=== PATIENT | male | born 1985 | race Caucasian/White ===

== ENCOUNTER 2016-10-20 22:58 | Emergency (ER) | payer SELFPAY ==
[~2016-10-20] VITALS: Ht 167.6 cm; Wt 89.0 kg
[~2016-10-20 22:58] MED LIST: DICY10CA60 PO; IBUP-1542 PO; LORA1TAB PO; ONDA4TAB35 PO; TRAM50TA2 PO
[2016-10-20 23:01] VITALS: Ht 167.6 cm; Wt 89.0 kg
[2016-10-21] MEDS ORDERED: IBUPROFEN 600 MG TAB PO ONE (00:30)
[2016-10-21] MEDS ORDERED: HYDROCODONE/APAP (5/325) TAB PO ONE (00:30)
--- NOTE | 2016-10-21 00:49 | RADRPT ---
PROCEDURE: XR Lumbar Spine. CLINICAL INDICATION: Low back pain. TECHNIQUE: AP, cone-down lateral, and lateral views of the lumbar spine were obtained. COMPARISON: None. FINDINGS: Mineralization is within normal limits. Vertebral bodies are normal in height. No fracture is iden tified. Lumbar lordosis is preserved. No vertebral subluxation is seen. The intervertebral discs are normal in height. Paraspinal contours are unremarkable. Calcification of the left retroperitone um is again noted consistent with a calcified lymph node seen on the prior CT of 07/31/2015 RPTAT:HJJR IMPRESSION: Unremarkable three view series of the lumbar spine. Physician Carla Date Time Electronically viewed and signed by Physician Carla on 10/21/2016 00:48 JR/
--- NOTE | 2016-10-21 00:50 | RADRPT ---
PROCEDURE: XR Hip. CLINICAL INDICATION: Bilateral hip pain TECHNIQUE: AP and frog lateral views of both the left and right hip were performed, a total of 4 i mages sent to the PACS for review. COMPARISON: None. FINDINGS: There is normal mineralization and alignment. No fracture or osseous lesion is identified. The femor al head is normal in contour and the joint space preserved. There is no evidence of avascular necros is. The soft tissues are unremarkable. . RPTAT:HJJR IMPRESSION: Unremarkable bilateral hip series. Physician Carla Date Time Electronically viewed and signed by Physician Carla on 10/21/2016 00:49 JR/
[2016-10-21] MEDS ORDERED: IBUP-1542 PO (01:31)
[2016-10-21] MEDS ORDERED: HYDR-906 PO (01:31)
--- NOTE | 2016-10-21 01:37 | ERD ---
ER Documentation Chief Complaint Date/Time DATE: 10/21/16 TIME: 01:33 Chief Complaint low back pain radaiting to both legs, constipation HPI This is a 30-year-old male presents here with lower back pain that radiates into both of his hips and both of his legs that started a few hours ago. Patient denies any numbness or tingling. He denies any urinary bowel incontinence he denies any saddle like anesthesia. Patient denies any fevers or chills. He denies any trauma. ROS 12 point review of systems was done, all negative except per HPI. Medications Home Meds Active Scripts Hydrocodone/Acetaminophen (Amity 5-325 Tablet) 1 Each Tablet, 1 TAB PO Q6H Y for PAIN, #10 TAB Prov:NEDRA VIRAMONTES 10/21/16 Ibuprofen* (Motrin*) 600 Mg Tab, 600 MG PO Q6, #30 TAB Prov:NEDRA VIRAMONTES 10/21/16 Tramadol HCl (Tramadol HCl) 50 Mg Tablet, 50 MG PO Q6 Y for SEVERE PAIN LEVEL 7- 10, #20 TAB Prov:NASH WRIGHT NP 04/26/16 Ibuprofen* (Motrin*) 600 Mg Tab, 600 MG PO Q6H Y for PAIN AND OR ELEVATED TEMP, #30 TAB Prov:NASH WRIGHT NP 04/26/16 Ondansetron Hcl* (Zofran* ODT) 4 mg -ODT Tab.disper, 4 MG PO Q8 Y for NAUSEA AND /OR VOMITING, #30 TAB Prov:NASH WRIGHT NP 07/31/15 Dicyclomine Hcl* (Bentyl*) 10 Mg Capsule, 10 MG PO QID, #30 CAP Prov:NASH WRIGHT NP 16 Lorazepam* (Lorazepam*) 1 Mg Tablet, 1 MG PO QHS Y for QHS, #15 TAB Prov:NEDRA VIRAMONTES 02/24/15 Allergies Allergies: Coded Allergies: No Known Allergy (Unverified , 11/28/14) PMhx/Soc Medical and Surgical Hx: pt denies Surgical Hx History of Surgery: No Anesthesia Reaction: No Hx Neurological Disorder: No Hx Respiratory Disorders: No Hx Cardiac Disorders: Yes (hypertension) Hx Psychiatric Problems: No Hx Miscellaneous Medical Probl: Yes (SEASONAL ALLERGIES) Hx Alcohol Use: Yes (occassional) Hx Substance Use: No Hx Tobacco Use: No Smoking Status: Never smoker Physical Exam Vitals Vital Signs Date Time Temp Pulse Resp B/P Pulse Ox O2 Delivery O2 Flow Rate FiO2 10/20/16 23:01 98.3 97 20 134/74 100 Physical Exam GENERAL: The patient is well developed and appropriate for usual state of health , in no apparent distress. NECK: C-spine is soft and supple. There is no cervical lymphadenopathy. CHEST: Clear to auscultation bilaterally. There are no rales, wheezes or rhonchi. HEART: Regular rate and rhythm. No murmurs, clicks, rubs or gallops. ABDOMEN: Soft, nontender and nondistended. Good bowel sounds. No rebound or guarding. No gross peritonitis. No gross organomegaly or masses. No Rutledge sign or McBurney point tenderness. No pulsatile abdominal mass. BACK: No midline or flank tenderness. Tender to palpation from L3-L5. Tense paraspinal muscles. Negative leg raise test. No step- offs. Patient is tender to palpation to bilateral hips he has full range of motion of both hips. Sensations are intact to L4,L5. S1 EXTREMITIES: Equal pulses bilaterally. There is no peripheral clubbing, cyanosis or edema. No focal swelling or erythema. Full range of motion. Grossly neurovascularly intact. NEURO: Alert and oriented. Cranial nerves II through XII are intact. Motor strength in all 4 extremities with 5/5 strength. Sensation grossly intact. Normal speech and gait. SKIN: There is no apparent rash or petechia. The skin is warm and dry. Results 24 hrs Current Medications Medications (Trade) Dose Ordered Sig/Prem Route PRN Reason Start Time Stop Time Status Last Admin Dose Admin Acetaminophen/ Hydrocodone Bitart (Amity (5/325)) 1 tab ONCE ONCE PO 10/21/16 00:30 10/21/16 00:31 DC 10/21/16 00:49 Ibuprofen (Motrin) 600 mg ONCE ONCE PO 10/21/16 00:30 10/21/16 00:31 DC 10/21/16 00:49 Procedures/MDM Differential Diagnosis includes but is not limited to back strain, vertebral fracture, epidural abscess, cauda equina, herniated disc, AAA rupture, kidney stones, UTI, pyelonephritis. At this time etiology of back pain is unknown. Suspicion for epidural abscess or cauda equina is low. Patient is afebrile and well-appearing. He is ambulatory in the ER and he is neurovascularly intact to bilateral lower extremities. Patient will be sent home with Amity with ibuprofen. Needs to follow-up with his primary care doctor within 1-2 days or return to ER sooner if symptoms worsen. My medical decision making was shared with the patient he understands and agrees with plan Departure Diagnosis: Primary Impression: Back pain Additional Impression: Hip pain Condition: Stable Patient Instructions: Back Pain (Acute Or Chronic) Additional Instructions: Call your primary care doctor TOMORROW for an appointment during the next 1-2 days.See the doctor sooner or return here if your condition worsens before your appointment time. NEDRA VIRAMONTES Oct 21, 2016 01:37
[2016-10-21 01:46] VITALS: BP 132/71; PULSE 67; RESP 18; TEMP 98.4
== END 2016-10-21 01:47 | disposition home or self-care (01) ==
LOC: FTE 22:58
DX: M54.5 Low back pain (principal); M25.551 Pain in right hip; M25.552 Pain in left hip; I10 Essential (primary) hypertension
CPT/HCPCS: 72100; 73520

== ENCOUNTER 2017-05-15 16:27 | Emergency (ER) | payer MEDICAID ==
[~2017-05-15] VITALS: Ht 165.1 cm; Wt 89.0 kg
[~2017-05-15 16:27] MED LIST changes: +HYDR-906 PO
[2017-05-15 16:31] VITALS: Ht 165.1 cm; Wt 89.0 kg
--- NOTE | 2017-05-15 17:19 | RADRPT ---
PROCEDURE: XR Chest. CLINICAL INDICATION: Possible stroke. TECHNIQUE: Single frontal view of the chest was obtained. COMPARISON: None FINDINGS: The cardiomediastinal silhouette is normal in size. No focal consolidation is seen. No pleural effusion is seen. No definite pneumothorax. No acute osseous abnormality. IMPRESSION: No radiographic evidence of an acute cardiopulmonary process. RPTAT: HPWH Kavita Vinson Physician Date Time Electronically viewed and signed by Kavita Vinson Physician on 05/15/2017 17:17 /
[2017-05-15 17:20] LABS: BASOPHILS % 0.6 % (0.0-2.0); EOSINOPHILS # 0.1 10^3/ul (0.0-0.5); EOSINOPHILS % 1.4 % (0.0-7.0); HEMATOCRIT 47.6 % (42.0-52.0); HEMOGLOBIN 17.4 g/dl (14.0-18.0); LYMPHOCYTES % 28.3 % (15.0-51.0); MEAN CORPUSCULAR HEMOGLOBIN 34.9 pg (29.0-33.0); MEAN CORPUSCULAR HGB CONC 36.6 g/dl (32.0-37.0); MEAN CORPUSCULAR VOLUME 95.6 fl (82.0-101.0); MEAN PLATELET VOLUME 10.9 fl (7.4-10.4); MONOCYTE # 0.5 10^3/ul (0.3-0.9); MONOCYTES % 7.6 % (0.0-11.0); NEUTROPHIL # 4.4 10^3/ul (1.6-7.5); NEUTROPHILS % 61.8 % (39.0-77.0); PLATELET COUNT 135 10^3/UL (140-415); RED BLOOD COUNT 4.98 10^6/ul (4.70-6.10); RED CELL DISTRIBUTION WIDTH 12.1 % (11.5-14.5); WHITE BLOOD COUNT 7.1 10^3/ul (4.8-10.8)
[2017-05-15 17:33] LABS: INR 1.05; PROTIME 13.7 Sec (12.2-14.2); PT RATIO 1.1
[2017-05-15 17:34] LABS: PARTIAL THROMBOPLASTIN TIME 27.9 Sec (25.0-35.0)
[2017-05-15 17:38] LABS: ANION GAP 12 (8-16); BLOOD UREA NITROGEN 9 mg/dl (7-20); CALCIUM 9.6 mg/dl (8.4-10.2); CARBON DIOXIDE 29 mmol/L (21-31); CHLORIDE 103 mmol/L (97-110); CREATININE 0.75 mg/dl (0.61-1.24); GLUCOSE 159 mg/dl (70-220); POTASSIUM 3.6 mmol/L (3.5-5.1); SODIUM 140 mmol/L (135-144)
[2017-05-15 17:51] LABS: TROPONIN-I < 0.012 ng/ml (0.00-0.12)
--- NOTE | 2017-05-15 18:06 | RADRPT ---
PROCEDURE: CT Brain without contrast. CLINICAL INDICATION: Pain, headache TECHNIQUE: Routine CT scan of the brain was performed on a high resolution multi detector scanner without intravenous contrast. One or more of the following dose reduction techniques were used: Auto mated exposure control; Adjustment of the mA and/or kV according to patient size; Use of iterative r econstruction technique. CTDI = 43 mGy. DLP = 720 mGy-cm. DICOM images are available. COMPARISON: MR 11/30/2014 FINDINGS: Hemorrhage: No evidence of intracranial hemorrhage. Acute ischemic changes: No evidence of acute ischemic changes. Mass effect: None. Parenchymal volume: Within normal limits for age. Ventricular system: Concordant with parenchymal volume. Cavum of the septum pellucidum is present. Chronic changes: Parenchymal attenuation is within normal limits. Idiopathic appearing calcificatio ns of the bilateral basal ganglia are present. Extracranial soft tissues: Unremarkable. Calvarium: No fractures. Paranasal sinuses: Visualized paranasal sinuses are clear. Mastoid air cells: Visualized mastoid air cells are clear. IMPRESSION: No acute intracranial abnormalities. Normal appearance of the brain parenchyma. Critical results were discussed with Sam Romo by telephone 05/15/2017 6:04:[address] Catrachito Mitchell RPTAT: AADD .Catrachito Mitchell MD, Date Time Electronically viewed and signed by .Catrachito Mitchell MD, on 05/15/2017 18:05 .B/
--- NOTE | 2017-05-15 18:12 | ERD ---
ER Documentation Chief Complaint Chief Complaint Complains of chest pain with tingling of the fingers HPI 31-year-old male presents to the emergency department complaining of numbness and tingling in the left side of his face and fingers accompanied by palpitations and chest pain. Patient was in his usual state of health until yesterday which time He had a nonspecific sensation of tingling and what he describes as "numbness" in the left side of his body. However, upon further detailed, he has been able to actually feel everything and has no sensory deficits. This was associated with no significant headache, difficulty speaking or any focal weakness. He had no other stroke related symptoms. Today, he had a nonspecific discomfort that he describes a palpitation in his chest. This was associated with no fevers, chills, chest pain or shortness of breath. All of these symptoms concerned him for cardiac and/or stroke related symptoms and so he came to the emergency department today. Currently, he has no chest pain, no weakness, no difficulty speaking, no headache. ROS All systems reviewed and are negative except as per history of present illness. Medications Home Meds Discontinued Scripts Hydrocodone/Acetaminophen ([place] 5-325 Tablet) 1 Each Tablet, 1 TAB PO Q6H Y for PAIN, #10 TAB Prov:NEDRA VIRAMONTES 10/21/16 Ibuprofen* (Motrin*) 600 Mg Tab, 600 MG PO Q6, #30 TAB Prov:NEDRA VIRAMONTES 10/21/16 Tramadol HCl (Tramadol HCl) 50 Mg Tablet, 50 MG PO Q6 Y for SEVERE PAIN LEVEL 7- 10, #20 TAB Prov:NASH WRIGHT STUDIO CONTROL OPERATOR 04/26/16 Ibuprofen* (Motrin*) 600 Mg Tab, 600 MG PO Q6H Y for PAIN AND OR ELEVATED TEMP, #30 TAB Prov:NASH WRIGHT STUDIO CONTROL OPERATOR 04/26/16 Ondansetron Hcl* (Zofran* ODT) 4 mg -ODT Tab.disper, 4 MG PO Q8 Y for NAUSEA AND /OR VOMITING, #30 TAB Prov:NASH WRIGHT NP 07/31/15 Dicyclomine Hcl* (Bentyl*) 10 Mg Capsule, 10 MG PO QID, #30 CAP Prov:NASH WRIGHT NP 07/31/15 Lorazepam* (Lorazepam*) 1 Mg Tablet, 1 MG PO QHS Y for QHS, #15 TAB Prov:NEDRA VIRAMONTES 02/24/15 Allergies Allergies: Coded Allergies: No Known Allergy (Unverified , 11/28/14) PMhx/Soc Medical and Surgical Hx: pt denies Surgical Hx History of Surgery: No Anesthesia Reaction: No Hx Neurological Disorder: No Hx Respiratory Disorders: No Hx Cardiac Disorders: Yes (hypertension) Hx Psychiatric Problems: No Hx Miscellaneous Medical Probl: Yes (SEASONAL ALLERGIES) Hx Alcohol Use: Yes (DAILY) Hx Substance Use: No Hx Tobacco Use: Yes Smoking Status: Current every day smoker FmHx No history of early stroke or heart disease Physical Exam Vitals Vital Signs Date Time Temp Pulse Resp B/P Pulse Ox O2 Delivery O2 Flow Rate FiO2 05/15/17 16:31 100.0 109 20 179/92 94 Physical Exam GENERAL: The patient is well developed and appropriate for usual state of health in no apparent distress HEENT: Pupils equal, round, and reactive to light. EOMI. There is no scleral icterus. NECK: C-spine is soft and supple, there is no meningismus. There is no cervical lymphadenopathy. LUNGS: Clear to auscultation bilaterally. There are no rales, wheezes or rhonchi. HEART: Regular rate and rhythm, no murmurs, clicks, rubs or gallops. ABDOMEN: Soft, non-tender, non-distended. There are bowel sounds in all four quadrants. No rebound or guarding. EXTREMITIES: There is no peripheral cyanosis or edema. No focal swelling or erythema. NEURO: The patient moves all four extremities with 5/5 strength. Cranial nerves II - XII are intact. Normal gait. Alert and oriented SKIN: There is no apparent rash or petechiae. Patient has vitiligo HEME/LYMPHATIC: There is no evidence of excessive bruising or lymphedema. PSYCHIATRIC: The patient does not appear anxious or depressed. Result Diagram: 05/15/17 17005/15/17 1705 Results 24 hrs Laboratory Tests Test 05/15/17 17:05 White Blood Count 7.110^3/ul Red Blood Count 4.9810^6/ul Hemoglobin 17.4g/dl Hematocrit 47.6% Mean Corpuscular Volume 95.6fl Mean Corpuscular Hemoglobin 34.9pg Mean Corpuscular Hemoglobin Concent 36.6g/dl Red Cell Distribution Width 12.1% Platelet Count 74307^3/UL Mean Platelet Volume 10.9fl Neutrophils % 61.8% Lymphocytes % 28.3% Monocytes % 7.6% Eosinophils % 1.4% Basophils % 0.6% Nucleated Red Blood Cells % 0.0/100WBC Neutrophils # 4.410^3/ul Lymphocytes # 2.010^3/ul Monocytes # 0.510^3/ul Eosinophils # 0.110^3/ul Basophils # 0.010^3/ul Nucleated Red Blood Cells # 0.010^3/ul Prothrombin Time 13.7Sec Prothrombin Time Ratio 1.1 INR International Normalized Ratio 1.05 Activated Partial Thromboplast Time 27.9Sec Sodium Level 140mmol/L Potassium Level 3.6mmol/L Chloride Level 103mmol/L Carbon Dioxide Level 29mmol/L Anion Gap 12 Blood Urea Nitrogen 9mg/dl Creatinine 0.75mg/dl Glucose Level 159mg/dl Calcium Level 9.6mg/dl Troponin I < 0.012ng/ml Procedures/MDM Patient was taken to a room, seen and evaluated. Comfort measures were initiated. Diagnostic tests were ordered and reviewed. 3 LEAD RHYTHM STRIP: [Normal sinus rhythm without ectopy] EK lead EKG reviewed by myself: [Normal Sinus Rhythm] [Normal Holden and intervals] [No ST elevation, depression, or T wave inversion] Impression: [Normal EKG] RADIOLOGY: [reviewed with the radiologist] REEVALUATION: Patient remained neurologically normal and with no evidence of ongoing cardiac or neurologic issues MEDICAL DECISION MAKIN-year-old male with no significant cardiac risk factors presents to the emergency department with nonspecific symptoms concerning him for cardiac and neurologic concerns. Patient's workup focused on these concerns, but demonstrate no evidence of significant ischemic disease either cardiac or cerebral. Overall, patient's been reassured and seems appropriate for outpatient care. Departure Diagnosis: Primary Impression: Chest pain Condition: Stable Patient Instructions: Generalized Weakness, Chest Pain, Uncertain Cause Additional Instructions: All your tests today are normal. Please return for any problems or concerns ONEIDA BROTHERS May 15, 2017 18:12
[2017-05-15 18:31] VITALS: BP 135/72; PULSE 74; RESP 17
== END 2017-05-15 18:32 | disposition home or self-care (01) ==
LOC: E/R 16:27
DX: R07.9 Chest pain, unspecified (principal); R20.2 Paresthesia of skin; R00.2 Palpitations
CPT/HCPCS: 36415; 70450; 71010; 80048; 83036; 84484; 85025; 85610; 85730; Z7502; 93005

== ENCOUNTER 2017-08-27 21:33 | Emergency (ER) | END 2017-08-27 23:25 | disposition home or self-care (01) ==

== ENCOUNTER 2017-10-23 10:30 | Emergency (ER) | END 2017-10-23 14:24 | disposition home or self-care (01) ==

== ENCOUNTER 2017-12-03 21:43 | Emergency (ER) | END 2017-12-03 23:53 | disposition home or self-care (01) ==

== ENCOUNTER 2018-01-23 19:37 | Emergency (ER) | END 2018-01-23 22:11 | disposition home or self-care (01) ==

== ENCOUNTER 2018-03-22 18:18 | Observation (INO) | END 2018-03-23 10:40 | disposition home or self-care (01) ==

== ENCOUNTER 2018-05-28 08:31 | Emergency (ER) | END 2018-05-28 10:50 | disposition home or self-care (01) ==

== ENCOUNTER 2018-06-01 20:40 | Emergency (ER) | END 2018-06-02 02:11 | disposition home or self-care (01) ==

== ENCOUNTER 2018-06-20 17:37 | Emergency (ER) | END 2018-06-20 19:31 | disposition home or self-care (01) ==

== ENCOUNTER 2018-07-13 17:30 | Emergency (ER) | payer OTHER ==
[~2018-07-13] VITALS: Ht 160 cm; Wt 90.0 kg
[~2018-07-13 17:30] MED LIST changes: +ACET500T98 PO; -DICY10CA60 PO; -HYDR-906 PO; -LORA1TAB PO; -ONDA4TAB35 PO; -TRAM50TA2 PO
[2018-07-13 17:40] VITALS: Ht 160 cm; Wt 90.0 kg
[2018-07-13] MEDS ORDERED: SOD CHLORIDE 0.9% 500 ML IV STA (22:21)
[2018-07-13] MEDS ORDERED: FLUO20CA22 PO (22:27)
[2018-07-13] MEDS ORDERED: METO-335 PO (22:27)
[2018-07-13] MEDS ORDERED: ASPI-817 PO (22:27)
[2018-07-13] MEDS ORDERED: IOHEXOL 100 ML ONE (23:23)
[2018-07-13] MEDS ORDERED: SOD CHLORIDE 0.9% 100 ML ONE (23:23)
[2018-07-14] MEDS ORDERED: LORA-441 PO (01:02)
--- NOTE | 2018-07-14 01:11 | ERD ---
ER Documentation Chief Complaint Chief Complaint headache x 3 hrs ,no neuro deficits ,had slurred speech earlier HPI This is a very pleasant 32 male headache for the past 3 hours with no neuro deficits. He said he had a transient moment of slurred speech but he says been having this on and off since he had a tonsillectomy last year. Denies any focal neurologic complaints otherwise. No weakness. No incontinence. No numbness or tingling. No visual acuity changes. No other current issues. Headache is mild to moderate intensity no exacerbating alleviating factors. ROS All systems reviewed and are negative except as per history of present illness. Medications Home Meds Active Scripts Lorazepam* (Ativan*) 0.5 Mg Tablet, 0.5 MG PO Q8H PRN for ANXIETY, #10 TAB Prov:PHIL DIAZ 07/14/18 Reported Medications Metoprolol Succinate* (Toprol XL*) 25 Mg Tab.sr.24h, 25 MG PO DAILY, #30 TAB 07/13/18 Fluoxetine Hcl* (Fluoxetine Hcl*) 20 Mg Capsule, 20 MG PO DAILY, CAP 07/13/18 Aspirin* (Aspirin* EC) 81 Mg Tablet.dr, 81 MG PO DAILY, TAB 07/13/18 Discontinued Scripts Acetaminophen (Tylenol) 500 Mg Tab, 500 MG PO Q6 PRN for PAIN, #30 TAB Prov:ADIN MENESES DO 05/28/18 Ibuprofen* (Motrin*) 600 Mg Tab, 600 MG PO Q6H PRN for PAIN AND OR ELEVATED TEMP, #30 TAB Prov:ADIN MENESES DO 05/28/18 Allergies Allergies: Coded Allergies: No Known Allergy (Unverified , 07/13/18) PMhx/Soc History of Surgery: Yes (Tonsillectomy) Anesthesia Reaction: No Hx Neurological Disorder: No Hx Respiratory Disorders: No Hx Cardiac Disorders: No Hx Psychiatric Problems: No Hx Miscellaneous Medical Probl: Yes (GENERALIZED VITILIGO, Sleep apnea) Hx Alcohol Use: Yes (OCCASIONAL) Hx Substance Use: No Hx Tobacco Use: Yes (Stopped 3 years ago) Smoking Status: Former smoker Physical Exam Vitals Vital Signs Date Temp Pulse Resp B/P (MAP) Pulse Ox O2 O2 Flow FiO2 Time Delivery Rate 07/13/18 57 16 114/62 100 Room Air 23:30 (79) 07/13/18 98.1 68 18 166/85 99 17:40 (112) Physical Exam Const: No acute distress Head: Atraumatic Eyes: Normal Conjunctiva ENT: Normal External Ears, Nose and Mouth. Neck: Full range of motion. No meningismus. Resp: Clear to auscultation bilaterally Cardio: Regular rate and rhythm, no murmurs Abd: Soft, non tender, non distended. Normal bowel sounds Skin: No petechiae or rashes Back: No midline or flank tenderness Ext: No cyanosis, or edema Neur: Awake and alert Psych: Normal Mood and Affect Result Diagram: 07/13/18223807/13/182238 Results 24 hrs Laboratory Tests Test 07/13/18 22:39 07/13/18 23:20 White Blood Count 8.1 10^3/ul Red Blood Count 5.03 10^6/ul Hemoglobin 17.0 g/dl Hematocrit 46.4 % Mean Corpuscular Volume 92.2 fl Mean Corpuscular Hemoglobin 33.8 pg Mean Corpuscular Hemoglobin Concent 36.6 g/dl Red Cell Distribution Width 12.4 % Platelet Count 151 10^3/UL Mean Platelet Volume 10.7 fl Immature Granulocytes % 0.100 % Neutrophils % 57.0 % Lymphocytes % 34.4 % Monocytes % 6.3 % Eosinophils % 2.0 % Basophils % 0.2 % Nucleated Red Blood Cells % 0.0 /100WBC Immature Granulocytes # 0.010 10^3/ul Neutrophils # 4.6 10^3/ul Lymphocytes # 2.8 10^3/ul Monocytes # 0.5 10^3/ul Eosinophils # 0.2 10^3/ul Basophils # 0.0 10^3/ul Nucleated Red Blood Cells # 0.0 10^3/ul Urine Color YELLOW Urine Clarity CLEAR Urine pH 6.0 Urine Specific [place] 1.011 Urine Ketones NEGATIVE mg/dL Urine Nitrite NEGATIVE mg/dL Urine Bilirubin NEGATIVE mg/dL Urine Urobilinogen NEGATIVE mg/dL Urine Leukocyte Esterase NEGATIVE Moon/ul Urine Hemoglobin NEGATIVE mg/dL Urine Glucose NEGATIVE mg/dL Urine Total Protein NEGATIVE mg/dl Sodium Level 139 mmol/L Potassium Level 3.9 mmol/L Chloride Level 103 mmol/L Carbon Dioxide Level 23 mmol/L Anion Gap 13 Blood Urea Nitrogen 12 mg/dl Creatinine 0.67 mg/dl Est Glomerular Filtrat Rate mL/min > 60 mL/min Glucose Level 90 mg/dl Hemoglobin A1c 5.2 % Calcium Level 9.6 mg/dl Total Bilirubin 0.8 mg/dl Direct Bilirubin 0.00 mg/dl Indirect Bilirubin 0.8 mg/dl Aspartate Amino Transf (AST/SGOT) 54 IU/L Alanine Aminotransferase (ALT/SGPT) 61 IU/L Alkaline Phosphatase 72 IU/L Creatine Kinase 181 IU/L Creatine Kinase Index 0.3 Creatinine Kinase MB (Mass) 0.58 ng/ml Troponin I < 0.012 ng/ml Total Protein 8.9 g/dl Albumin 4.8 g/dl Globulin 4.10 g/dl Albumin/Globulin Ratio 1.17 Triglycerides Level 102 mg/dl Cholesterol Level 237 mg/dl LDL Cholesterol, Calculated 162 mg/dl HDL Cholesterol 55 mg/dl Cholesterol/HDL Ratio 4.3 RATIO Urine Opiates Screen Negative Urine Barbiturates Negative Urine Amphetamines Screen Negative Urine Benzodiazepines Screen Negative Urine Cocaine Screen Negative Urine Cannabinoids Negative Ethyl Alcohol Level < 10.0 mg/dl Prothrombin Time 13.4 Sec Prothrombin Time Ratio 1.0 INR International Normalized Ratio 1.01 Activated Partial Thromboplast Time 28.6 Sec Current Medications Medications Dose Sig/Prem Start Time Status Last (Trade) Ordered Route PRN Stop Time Admin Dose Reason Admin Sodium 500 ml @ Q1H STAT 07/13/18 DC 07/13/18 Chloride 500 mls/hr IV 22:21 22:33 07/13/18 23:20 IV Flush 10 ml STK-MED 07/13/18 DC (NS 10 ml) ONCE .ROUTE 23:23 07/13/18 23:24 Sodium 100 ml @ ud STK-MED 07/13/18 DC Chloride ONCE .ROUTE 23:23 07/13/18 23:24 Iohexol 100 ml @ ud STK-MED 07/13/18 DC ONCE .ROUTE 23:23 07/13/18 23:24 Procedures/MDM CT of the brain and CT angios the head and neck were both read as negative by radiologist. Please see full dictation for report. EKG: Rate/Rhythm: [Normal Sinus Rhythm] QRS, ST, T-waves: [No changes consistent w/ acute ischemia] Impression: [No evidence of ischemia or arrhythmia] Chest X-ray 1V Interpreted by me: Soft Tissue: No acute abno rmalities Bones: No acute abnormalities Mediastinum/Cardiac Silhouette/Lungs: [No acute abnormalities] Medical decision making: Patient's neurologic symptoms have stabilized while they have been evaluated in the department and are appropriate for outpatient work up. No e/o meningitis, intracranial bleed, seizure, stroke. Departure Diagnosis: Primary Impression: Multiple complaints Condition: Stable Patient Instructions: Headache, Unspecified PHIL DIAZ Jul 14, 2018 01:11
[2018-07-14 01:14] VITALS: BP 107/95; PULSE 92; RESP 16
== END 2018-07-14 01:15 | disposition home or self-care (01) ==
LOC: E/R 17:30
DX: R51 Headache (principal); R47.81 Slurred speech; R07.9 Chest pain, unspecified; Z87.891 Personal history of nicotine dependence; Z79.82 Long term (current) use of aspirin
CPT/HCPCS: 36415; 70450; 70496; 70498; 71045; 80053; 80061; 80307; 81003; 82550; 82553; 83036; 84484; 85025; 85610; 85730; 93005; J7040; Q9967; Z7502; Z7610

== ENCOUNTER 2018-10-12 20:20 | Inpatient (IN) | payer MEDICAID, OTHER ==
[~2018-10-12] VITALS: Ht 157.5 cm; Wt 90.4 kg
[~2018-10-12 20:20] MED LIST changes: -ACET500T98 PO; +ASPI-817 PO; +FLUO20CA22 PO; -IBUP-1542 PO; +LORA-441 PO; +METO-335 PO
[2018-10-12] MEDS ORDERED: MULTIVITAMINS (21:03)
--- NOTE | 2018-10-12 21:31 | STROKE ---
Date/Time of Note Date/Time of Note DATE: 10/12/18 TIME: :23 Patient Information General Patient location: emergency Arrival Date Onset Time: 19:20 Age 32 Gender male Weight 90.4 kg Vital Signs Vital Signs Vital Signs Date Temp Pulse Resp B/P (MAP) Pulse Ox O2 O2 Flow FiO2 Time Delivery Rate 10/12/18 99.2 112 20 145/82 94 20:27 (103) Patient History Current Medications Allergies: Coded Allergies: No Known Allergy (Unverified , 10/12/18) History & Physical Patient History Notes Pt Hx Reviewed History of Present Illness 32 yo M who presents to the ER for evaluation of transient left arm flaccid paralysis and left facial numbness lasting about 3 min with onset around 7:20pm today on 10/12. Upon arrival to the ER he then developed hand numbness lasting about 5 minutes before resolution. Review of Systems Constitutional: denies fever Respiratory: denies no symptoms reported Cardiovascular: denies no symptoms reported Gastrointestinal: denies no symptoms reported Psychiatric/Neurological: denies no symptoms reported NIH Stroke Scale NIH Stroke Scale [id number] Total Score: [id number] Date/Time Recorded DATE: 10/12/18 TIME: :23 Submitted By Ernst Sow t-PA Imaging Review Imaging Reviewed: Yes Date/Time Imaging Reviewed DATE: 10/12/18 TIME: 21:23 Inclusion/Exclusion Criteria not recommended due to non-disabling and minor symptoms t-PA Administration Recommendation: No Weight 90.4 kg Recommedation submitted by Ernst Sow Recommendations Impression Diagnosis This is a patient who developed transient left facial numbness and left arm paralysis today lasting about 3 mins. Although this resolved, he subsequently developed transient numbness of his right hand. NIHSS was 0 and CTH was negative for acute processes. TPA was considered but not recommended due to the minor symptoms. His symptoms are concerning for a TIA and thus will recommend admission for further workup Recommendation 1) MRI/MRA Brain head/neck. 2) Neurology consult to guide ischemic/embolic workup: TTE w bubble, LDL, A1c, telemetry admission. 3) permissive HTN for 24h (treat for SBP>220). 4) ASA 81 now and continue daily for now ERNST SOW MD Oct 12, 2018 21:31
--- NOTE | 2018-10-12 21:48 | ERD ---
ER Documentation Chief Complaint Chief Complaint left sd facial numbness x25 mins. c/o right side weakness. HPI 32-year-old male with no significant past medical history presented with left- sided facial numbness and slurred speech that started at 1800 tonight. Patient states that he was holding his baby when he suddenly felt weakness in his left upper extremity and the baby was caught by his mom. He states that now his weakness is in the right upper extremity and right lower extremity with tingling in the right side. He denies any associated nausea or vomiting. He does have a mild left-sided headache. He states that he has never had symptoms like this before. Denies any alcohol use today. He states that his mom gave him a "calming" tea after his symptoms started with worsening of his symptoms. ROS All systems reviewed and are negative except as per history of present illness. Medications Home Meds Reported Medications [Multivitamins] No Conflict Check 10/12/18 Discontinued Reported Medications Metoprolol Succinate* (Toprol XL*) 25 Mg Tab.sr.24h, 25 MG PO DAILY, #30 TAB 07/13/18 Fluoxetine Hcl* (Fluoxetine Hcl*) 20 Mg Capsule, 20 MG PO DAILY, CAP 07/13/18 Aspirin* (Aspirin* EC) 81 Mg Tablet.dr, 81 MG PO DAILY, TAB 07/13/18 Discontinued Scripts Lorazepam* (Ativan*) 0.5 Mg Tablet, 0.5 MG PO Q8H PRN for ANXIETY, #10 TAB Prov:MONICAPHIL GAINES 07/14/18 Allergies Allergies: Coded Allergies: No Known Allergy (Unverified , 10/12/18) PMhx/Soc History of Surgery: Yes (Tonsillectomy) Anesthesia Reaction: No Hx Neurological Disorder: No Hx Respiratory Disorders: No Hx Cardiac Disorders: No Hx Psychiatric Problems: No Hx Miscellaneous Medical Probl: Yes (GENERALIZED VITILIGO, Sleep apnea) Hx Alcohol Use: Yes (OCCASIONAL) Hx Substance Use: No Hx Tobacco Use: Yes (Stopped 3 years ago) Smoking Status: Former smoker FmHx Mother had CVA Physical Exam Vitals Vital Signs Date Temp Pulse Resp B/P (MAP) Pulse Ox O2 O2 Flow FiO2 Time Delivery Rate 10/12/18 107 20 106/70 96 Room Air 22:16 (82) 10/12/18 99.2 112 20 145/82 94 20:27 (103) Physical Exam Const: No acute distress, nontoxic. Smells of alcohol Head: Atraumatic Eyes: Normal Conjunctiva ENT: Normal External Ears, Nose and Mouth. Neck: Full range of motion. No meningismus. Resp: Clear to auscultation bilaterally Cardio: Regular rate and rhythm, no murmurs. 2+ distal pulses in all 4 extremities Abd: Soft, non tender, non distended. Normal bowel sounds Skin: Vitiligo. No petechiae or rashes Back: No midline or flank tenderness Ext: No cyanosis, or edema Neur: Awake and alert oriented x3, somewhat slurred speech, no facial asymmetry, cranial nerves intact, strength 5 out of 5 in all 4 extremities. Diminished sensation in the right upper extremity to painful stimuli. No pronator drift. Steady gait. Psych: Normal Mood and Affect Result Diagram: 10/13/18 0530 10/13/18 0530 Results 24 hrs Laboratory Tests Test 10/12/18 20:50 10/12/18 21:00 White Blood Count 10.0 10^3/ul Red Blood Count 4.96 10^6/ul Hemoglobin 16.8 g/dl Hematocrit 45.9 % Mean Corpuscular Volume 92.5 fl Mean Corpuscular Hemoglobin 33.9 pg Mean Corpuscular Hemoglobin Concent 36.6 g/dl Red Cell Distribution Width 12.0 % Platelet Count 152 10^3/UL Mean Platelet Volume 10.7 fl Immature Granulocytes % 0.300 % Neutrophils % 46.8 % Lymphocytes % 44.8 % Monocytes % 6.3 % Eosinophils % 1.4 % Basophils % 0.4 % Nucleated Red Blood Cells % 0.0 /100WBC Immature Granulocytes # 0.030 10^3/ul Neutrophils # 4.7 10^3/ul Lymphocytes # 4.5 10^3/ul Monocytes # 0.6 10^3/ul Eosinophils # 0.1 10^3/ul Basophils # 0.0 10^3/ul Nucleated Red Blood Cells # 0.0 10^3/ul Prothrombin Time 13.9 Sec Prothrombin Time Ratio 1.1 INR International Normalized Ratio 1.06 Activated Partial Thromboplast Time 30.1 Sec Sodium Level 146 mmol/L Potassium Level 3.7 mmol/L Chloride Level 109 mmol/L Carbon Dioxide Level 25 mmol/L Anion Gap 12 Blood Urea Nitrogen 10 mg/dl Creatinine 0.95 mg/dl Est Glomerular Filtrat Rate mL/min > 60 mL/min Glucose Level 145 mg/dl Hemoglobin A1c 5.4 % Calcium Level 9.0 mg/dl Creatine Kinase 262 IU/L Creatine Kinase Index 0.5 Creatinine Kinase MB (Mass) 1.20 ng/ml Troponin I < 0.012 ng/ml Triglycerides Level 465 mg/dl Cholesterol Level 206 mg/dl LDL Cholesterol, Calculated 66 mg/dl HDL Cholesterol 47 mg/dl Cholesterol/HDL Ratio 4.3 RATIO Ethyl Alcohol Level 226.0 mg/dl Urine Color YELLOW Urine Clarity CLEAR Urine pH 5.0 Urine Specific Steward 1.018 Urine Ketones TRACE mg/dL Urine Nitrite NEGATIVE mg/dL Urine Bilirubin NEGATIVE mg/dL Urine Urobilinogen 1+ mg/dL Urine Leukocyte Esterase NEGATIVE Moon/ul Urine Hemoglobin NEGATIVE mg/dL Urine Glucose NEGATIVE mg/dL Urine Total Protein NEGATIVE mg/dl Urine Opiates Screen Negative Urine Barbiturates Negative Urine Amphetamines Screen Negative Urine Benzodiazepines Screen Negative Urine Cocaine Screen Negative Urine Cannabinoids Negative Procedures/MDM EMERGENT LABS AND DIAGNOSTIC STUDIES: Lab Results above were reviewed and interpreted by me. CBC: Thrombocytopenia, unclear etiology. No anemia or evidence of infection CMP: No evidence of clinically significant electrolyte abnormality, acidosis, renal failure, hypoglycemia, liver disease, or biliary obstruction Alcohol level significantly elevated consistent with alcohol intoxication Troponin within normal limits, not indicative of cardiac ischemia UA: no evidence of infection 12-lead EKG was interpreted by Hector Wu MD: Sinus tachycardia 110 beats per minute rightward axis Normal intervals No acute ST or T wave changes suggestive of acute ischemia or STEMI. Radiology Results as interpreted by Radiology below were reviewed by SSandy Wu MD: CT head shows no acute abnormalities Chest x-ray shows no acute abnormalities Initial Nursing notes reviewed. Previous Medical Records requested via the Electronic Health Record. EMERGENCY DEPARTMENT COURSE / MEDICAL DECISION MAKING: Patient arrived to the ER with complaints of strokelike symptoms. There is no significant weakness in his extremities on exam but he did have a slightly slurred speech and sensation deficit on the right upper extremity. For this reason code stroke was activated and the patient was taken directly to CT. I spoke with the tele-neurologist on-call, Dr. Sow at 2050. He evaluated the patient and has currently given him an NIH SS of 0 at time of evaluation. TPA is not indicated due to low NIHSS. However Dr. Sow is concerned about a possible TIA given the patient's symptoms prior to her arrival. Dr. Sow recommended admission for MRI and TIA workup. Later his labs resulted and showed evidence of alcohol intoxication. At this point, I spoke with Dr. Sow again to discuss alcohol intoxication and to make sure that he still thinks that the patient should be admitted for TIA workup. After speaking with him, he states that he would still admit this patient given his symptoms were very concerning for stroke and that alcohol intoxication would likely account for them. Patient is agreeable with admission plan. Spoke with Dr. Alonso, who accepted the patient for admission to telemetry. Critical Care Time: 40 minutes Treatments/Evaluations: Close monitoring and treatment of unstable vital signs, cardiorespiratory, and neurologic status, while maintaining tight balance of fluid, respiratory, and cardiac interventions. This time includes discussing the case with the patient and the patients family. This time does not include all procedures stated elsewhere in this record. This time also includes reviewing old records, labs and radiological studies. This time includes examining and re-examining the patient. Additionally, this time also includes arranging care with admitting and consulting physicians. Accepting Care Team: Current data and ongoing care discussed. Time: Time of admission Primary Provider: Dr. Alonso Consulting: Dr. Sow with tele-neurology Outstanding Data: none Departure Diagnosis: Primary Impression: Stroke-like symptoms Additional Impressions: Alcohol intoxication Complication of substance-induced condition: uncomplicated Qualified Codes: F10.920 - Alcohol use, unspecified with intoxication, uncomplicated Thrombocytopenia Condition: SHILPA Cole MD Oct 12, 2018 21:48
--- NOTE | 2018-10-12 22:26 | HP ---
Date/Time of Note Date/Time of Note DATE: 10/12/18 TIME: 22:26 Assessment/Plan VTE Prophylaxis SCD applied (from Nsg): Yes Pharmacological prophylaxis: NA/contraindicated Pharm contraindication: low risk/ambulating Lines/Catheters IV Catheter Type (from Nrsg): Saline Lock Assessment/Plan Hospital Course This is a 32-year-old male being admitted to the telemetry floor for observation for: 1 suspect transient ischemic attack: Patient had left-sided facial and arm weakness along with left arm paralysis which have now resolved. Patient also reported that he had some tingling of his right hand as well. Patient also of note had a blood alcohol level of 226. He also reported slurred speech which is now resolved as well. While this could be all related to his alcohol use given the focal symptoms family history who was at the minimum check a MRI of the brain. If abnormalities are noted will consider further imaging studies. Will check hemoglobin A1c, lipid panel, TSH. Consider neurology consultation if clinically indicated. 2. Heavy alcohol use: Patient reports that he drinks a few times a week but denies blacking out. At the current time with the patient on as needed Ativan for withdrawal symptoms. Banana bag. Thiamine. Encourage cessation 3. Obesity: We will check a hemoglobin A1c, lipid panel, TSH, encourage diet and lifestyle modification. 4. DVT GI prophylaxis: SCDs, no GI prophylaxis indicated Further treatment strategy will be implemented as per the clinical course Result Diagram: 10/12/18204910/12/182049 Results 24hrs Laboratory Tests Test 10/12/18 20:50 10/12/18 21:00 White Blood Count 10.0 # Red Blood Count 4.96 Hemoglobin 16.8 Hematocrit 45.9 Mean Corpuscular Volume 92.5 Mean Corpuscular Hemoglobin 33.9 H Mean Corpuscular Hemoglobin Concent 36.6 Red Cell Distribution Width 12.0 Platelet Count 152 Mean Platelet Volume 10.7 H Immature Granulocytes % 0.300 Neutrophils % 46.8 Lymphocytes % 44.8 Monocytes % 6.3 Eosinophils % 1.4 Basophils % 0.4 Nucleated Red Blood Cells % 0.0 Immature Granulocytes # 0.030 Neutrophils # 4.7 Lymphocytes # 4.5 H Monocytes # 0.6 Eosinophils # 0.1 Basophils # 0.0 Nucleated Red Blood Cells # 0.0 Prothrombin Time 13.9 Prothrombin Time Ratio 1.1 INR International Normalized Ratio 1.06 Activated Partial Thromboplast Time 30.1 Sodium Level 146 H Potassium Level 3.7 Chloride Level 109 Carbon Dioxide Level 25 Anion Gap 12 Blood Urea Nitrogen 10 Creatinine 0.95 Est Glomerular Filtrat Rate mL/min > 60 Glucose Level 145 Hemoglobin A1c 5.4 Calcium Level 9.0 Creatine Kinase 262 H Creatine Kinase Index 0.5 Creatinine Kinase MB (Mass) 1.20 Troponin I < 0.012 Triglycerides Level 465 H Cholesterol Level 206 H LDL Cholesterol, Calculated 66 HDL Cholesterol 47 Cholesterol/HDL Ratio 4.3 Ethyl Alcohol Level 226.0 H Urine Color YELLOW Urine Clarity CLEAR Urine pH 5.0 Urine Specific Tyler 1.018 Urine Ketones TRACE A Urine Nitrite NEGATIVE Urine Bilirubin NEGATIVE Urine Urobilinogen 1+ H Urine Leukocyte Esterase NEGATIVE Urine Hemoglobin NEGATIVE Urine Glucose NEGATIVE Urine Total Protein NEGATIVE Urine Opiates Screen Negative Urine Barbiturates Negative Urine Amphetamines Screen Negative Urine Benzodiazepines Screen Negative Urine Cocaine Screen Negative Urine Cannabinoids Negative HPI/ROS Admit Date/Time Admit Date/Time Hx of Present Illness Chief complaint: Left-sided numbness paralysis This is a 32-year-old male who presented to the emergency department after having symptoms of left-sided numbness paralysis. Patient stated that around 7 PM yesterday he started feeling left arm numbness followed by a complete paralysis. He states that he also felt numbness of his left side of his face. He also reported slurred speech. He states it lasted for approximately 5 minutes will resolution of the symptoms. He does report that he was drinking yesterday as well. Because his mother had a stroke before he was concerned and came to the emergency department. In the emergency department the patient had a code stroke called on him and the telemetry neurologist did an examination and there was concern for possible TIA and so he was recommended admission for further workup. It was also noted that the patient's blood alcohol level was elevated to 226. Patient reports that he drinks a few days a week but denies ever blacking out. He drinks wine and beer. Patient does report that he also was later started feeling numbness in his right hand but no weakness. Allergies: NKDA Medications: None ROS Const: As per HPI Eyes : No pain discharge or redness or change in visual acuity ENT: No pain, sore throat, congestion, congestion, dysphagia or discharge Respiratory: No shortness of breath, cough, sputum, wheezing, or pleuritic pain Cardiovascular: No chest pain, palpitation, PND, or edema GI : no change in appetite, abdominal pain, nausea, vomiting, diarrhea, constipation, or change in the color his stool Genitourinary: No dysuria, hematuria, flank pain , discharge or CVA tenderness Musculoskeletal: No joint pain, back pain, neck pain, restricted range of motion in neck or joints Skin: No rash, bruising or hives Neuro: As per HPI Endocrine: No polyuria, polydipsia, temperature intolerance Psych: No hallucination, depression, anxiety or suicidal ideation PMH/Family/Social Past Medical History Vitiligo Medications Current Medications IV Flush (NS 3 ml) 3 ml PER PROTOCOL IV ; Start 10/12/18 at 22:30; Status UNV Acetaminophen (Tylenol Tab) 650 mg Q6H PRN PO .PAIN 1-3 OR TEMP; Start 10/12/18 at 22:30; Status UNV Docusate Sodium (Colace) 100 mg Q12H PRN PO .CONSTIPATION; Start 10/12/18 at 22:30; Status UNV Bisacodyl (Dulcolax) 5 mg DAILY PRN PO .CONSTIPATION; Start 10/12/18 at 22:30; Status UNV Fish Oil (Fish Oil) 1,000 mg BID PO ; Start 10/12/18 at 22:30; Status UNV Sodium Chloride 500 ml @ 500 mls/hr Q1H ONCE IV ; Start 10/12/18 at 22:30; Stop 10/12/18 at 23:29; Status UNV Multivitamins 10 ml/Thiamine HCl 100 mg/Folic Acid 1 mg/Sodium Chloride 1,011.2 ml @ 125 mls/ hr DAILY@09 IVPB ; Start 10/12/18 at 22:30; Status UNV Coded Allergies: No Known Allergy (Unverified , 10/12/18) Past Surgical History Tonsillectomy Family History Significant Family History: vascular disease Social History Alcohol Use: heavy Smoking Status: Never smoker Exam/Review of Systems Vital Signs Vitals Vital Signs Date Temp Pulse Resp B/P (MAP) Pulse Ox O2 O2 Flow FiO2 Time Delivery Rate 10/12/18 107 20 106/70 96 Room Air 22:16 (82) 10/12/18 99.2 20:27 Exam Exam General: Patient is a pleasant male currently lying in bed in no acute distress. HEENT: Atraumatic, normocephalic. The pupils are equal, round and reactive. Extraocular motor are intact Neck: Supple with full range of motion. No rigidity or meningismus Chest: Nontender Lungs: Clear to auscultation bilaterally no crackles rales or wheezing Heart: Normal S1-S2, Regular rhythm and rate. No murmur, S3, or S4 Abdomen: Soft , nontender, nondistended , bowel sounds are present. No guarding no rebound tenderness , No masses or organomegaly. No costovertebral temporal angle mass Extremities: Normal to inspection, no edema no cyanosis Musculoskeletal: Restricted range of motion of the right hand on flexion, reports pain along the ulnar surface of the arm. Neurologic: Normal mental status, speech normal, cranial nerves II through XII are intact, motor and sensory are intact, no focal neurological deficits noted. Psych: Patient does not appear to be tremulous or anxious. Additional Comments PROCEDURE: CT Brain without contrast. CLINICAL INDICATION: Stroke protocol TECHNIQUE: A CT of the brain was performed on a multi-slice CT scanner utilizing axial imaging from the skull base through the vertex without IV contrast. Coronal and sagittal re-formations were created. Images were reviewed on a PACS workstation. The CTDIvol is 39 mGy and the DLP is 634 mGycm. DICOM images are available. 3-D reconstructions were not performed. One or more of the following dose reduction techniques were utilized: 1.) Automated exposure control 2.) Adjustment of the mA +/- kV according to patient's size 3.) Use of iterative reconstruction technique. COMPARISON: None FINDINGS: The basilar cisterns, ventricular spaces and sulcal spaces are normal in size. The patient has a moderately prominent cavum septi pellucidum. There is no midline shift or other evidence of mass effect. There are no abnormal foci of increased attenuation in the brain parenchyma. No abnormal foci of diminished attenuation are present. Bone-windows show no lytic or blastic calvarial lesions. The visualized paranasal sinuses and mastoid air cells are clear. IMPRESSION: 1. Unremarkable unenhanced computed tomograms of the head without evidence of intracranial hemorrhage, mass, or acute infarct. These findings were discussed with Dr. Luz Palmer by phone at 2048 hours. RPTAT:AAJJ Daksha Dale, Physician Date Time Electronically viewed and signed by Daksha Dale Physician on 10/12/2018 20:50 GW/ CC: SHILPA PALMER MD [id number] PROCEDURE: XR Chest CLINICAL INDICATION: Patient experiencing possible Stroke symptoms TECHNIQUE: Frontal view of the chest COMPARISON: CR CHEST 04/26/2016; CR CHEST 02/23/2015; CR CHEST 11/28/2014 FINDINGS: The cardiomediastinal silhouette is within normal limits. There is a right lung base opacity which may represent atelectasis or infiltrate. There is no evidence of significant pleural effusion or pneumothorax. No suspicious osseous lesions. IMPRESSION: Right lung base opacities may represent atelectasis versus infiltrate. RPTAT: HH Sinan Sow, Physician Date Time Electronically viewed and signed by Sinan Sow Physician on 10/12/2018 20:57 HtN/ CC: SHILPA PALMER MD [phone] 12-lead EKG Sinus tachycardia 110 beats per minute rightward axis Normal intervals No acute ST or T wave changes suggestive of acute ischemia or STEMI. NAOMY GUALLPA Oct 12, 2018 22:26
[2018-10-12] MEDS ORDERED: BISACODYL (EC) 5 MG TAB PO PRN (22:30)
[2018-10-12] MEDS ORDERED: NACL 0.9% 3 ML SYG IV SCH (22:30)
[2018-10-12] MEDS ORDERED: ACETAMINOPHEN 325 MG TAB PO PRN (22:30)
[2018-10-12] MEDS ORDERED: DOCUSATE SODIUM 100 MG CAP PO PRN (22:30)
[2018-10-12] MEDS ORDERED: LORAZEPAM 2 MG INJ IV PRN (22:30)
[2018-10-12] MEDS ORDERED: SOD CHLORIDE 0.9% 500 ML IV ONE (22:30)
[2018-10-12 23:25] VITALS: PULSE 101
[2018-10-12 23:30] VITALS: Ht 157.5 cm; Wt 90.4 kg
[2018-10-13] VITALS (13 sets, daily range): BP systolic 119–141; BP diastolic 60–78; PULSE 72–108; RESP 18–20
[2018-10-13] MEDS: FISH OIL 1,000 MG CAP PO SCH ×3 (01:26→22:08)
[2018-10-13] MEDS: MULTIVITAMINS 10 ML, THIAMINE 100 MG, FOLIC ACID 1 MG in SOD CHLORIDE 0.9% 1,000 ML IVPB SCH ×2 (01:26→09:04)
[2018-10-13] MEDS ORDERED: KETOROLAC 15 MG INJ IV ONE (03:20)
[2018-10-13] MEDS: THIAMINE 100 MG TAB PO SCH (09:04)
--- NOTE | 2018-10-13 13:39 | PN ---
Date/Time of Note Date/Time of Note DATE: 10/13/18 TIME: 13:34 Assessment/Plan VTE Prophylaxis Risk score (from Ns)>0 risk: 1 SCD applied (from Ns): Yes Pharmacological prophylaxis: other Lines/Catheters IV Catheter Type (from Nrs): Peripheral IV Urinary Cath still in place: No Assessment/Plan Assessment/Plan 1. Transient weakness on left side(LUE>LLE), MRI brain/cervical spine 2. Weak on right hand grasping, likely peripheral, ?carpal tunnel, MRI c-spine 3. Alcohol abuse, no withdrawal symptoms. Encourage cessation 4. Obesity: We will check a hemoglobin A1c, lipid panel, TSH, encourage diet and lifestyle modification. 5. DVT GI prophylaxis: SCDs, no GI prophylaxis indicated Result Diagram: 10/13/1852910/13/1830 Results 24hrs Laboratory Tests Test 10/12/18 20:50 10/12/18 21:00 10/13/18 05:30 White Blood Count 10.0 # 7.3 # Red Blood Count 4.96 4.57 L Hemoglobin 16.8 15.5 Hematocrit 45.9 42.6 Mean Corpuscular Volume 92.5 93.2 Mean Corpuscular Hemoglobin 33.9 H 33.9 H Mean Corpuscular Hemoglobin Concent 36.6 36.4 Red Cell Distribution Width 12.0 12.3 Platelet Count 152 126 L Mean Platelet Volume 10.7 H 11.1 H Immature Granulocytes % 0.300 0.300 Neutrophils % 46.8 50.7 Lymphocytes % 44.8 37.7 Monocytes % 6.3 8.4 Eosinophils % 1.4 2.5 Basophils % 0.4 0.4 Nucleated Red Blood Cells % 0.0 0.0 Immature Granulocytes # 0.030 0.020 Neutrophils # 4.7 3.7 Lymphocytes # 4.5 H 2.8 Monocytes # 0.6 0.6 Eosinophils # 0.1 0.2 Basophils # 0.0 0.0 Nucleated Red Blood Cells # 0.0 0.0 Prothrombin Time 13.9 Prothrombin Time Ratio 1.1 INR International Normalized Ratio 1.06 Activated Partial Thromboplast Time 30.1 Sodium Level 146 H 142 Potassium Level 3.7 3.5 Chloride Level 109 106 Carbon Dioxide Level 25 25 Anion Gap 12 11 Blood Urea Nitrogen 10 13 Creatinine 0.95 0.69 Est Glomerular Filtrat Rate mL/min > 60 > 60 Glucose Level 145 155 Hemoglobin A1c 5.4 Calcium Level 9.0 8.5 Creatine Kinase 262 H Creatine Kinase Index 0.5 Creatinine Kinase MB (Mass) 1.20 Troponin I < 0.012 Triglycerides Level 465 H Cholesterol Level 206 H LDL Cholesterol, Calculated 66 HDL Cholesterol 47 Cholesterol/HDL Ratio 4.3 Ethyl Alcohol Level 226.0 H Urine Color YELLOW Urine Clarity CLEAR Urine pH 5.0 Urine Specific [place] 1.018 Urine Ketones TRACE A Urine Nitrite NEGATIVE Urine Bilirubin NEGATIVE Urine Urobilinogen 1+ H Urine Leukocyte Esterase NEGATIVE Urine Hemoglobin NEGATIVE Urine Glucose NEGATIVE Urine Total Protein NEGATIVE Urine Opiates Screen Negative Urine Barbiturates Negative Urine Amphetamines Screen Negative Urine Benzodiazepines Screen Negative Urine Cocaine Screen Negative Urine Cannabinoids Negative Magnesium Level 1.9 Total Bilirubin 0.3 Direct Bilirubin 0.00 Indirect Bilirubin 0.3 Aspartate Amino Transf (AST/SGOT) 33 Alanine Aminotransferase (ALT/SGPT) 47 Alkaline Phosphatase 89 Total Protein 7.3 Albumin 4.1 Globulin 3.20 Albumin/Globulin Ratio 1.28 Thyroid Stimulating Hormone (TSH) 2.770 Subjective 24 Hr Interval Summary Free Text/Dictation still with weakness on right hand Exam/Review of Systems Exam Vitals Vital Signs Date Temp Pulse Resp B/P (MAP) Pulse Ox O2 O2 Flow FiO2 Time Delivery Rate 10/13/18 103 12:25 10/13/18 98.6 19 139/78 96 Room Air 11:03 (98) Intake and Output 10/12/18 10/12/18 10/13/18 1515:00 23:00 07:00 IntakeIntake Total 900 ml OutputOutput Total 600 ml BalanceBalance 300 ml Constitutional: alert, oriented, well developed Psych: no complaints, nl mood/affect Head: normocephalic, atraumatic Eyes: nl conjunctiva, EOMI, nl lids ENMT: nl external ears & nose, nl lips & teeth, nl nasal mucosa & septum Neck: supple, non-tender Respiratory: clear to auscultation, normal air movement; No congested cough, No crackles/rales, No diminished breath sounds, No intercostal retraction, No labored breathing, No respirations, No tactile frem itus, No wheezing, No other Cardiovascular: regular rate and rhythm, nl pulses; No bruits, No diastolic murmur, No edema, No gallop, No irregular rhythm, No jugular venous distention (JVD), No murmurs/extra sounds, No rub, No systolic murmur, No S3, No S4, No other Gastrointestinal: soft, nl liver, spleen, non-tender; No ascites, No bowel sounds, No distended, No firm, No hepatomegaly, No mass, No rebound or guarding, No splenomegaly, No surgical scars, No tender, No other Musculoskeletal: nl extremities to inspection Extremities: normal pulses; No calf tenderness, No cyanosis, No clubbing, No edema, No pitting pedal edema, No palpable cord, No tenderness, No other Neurological: IT TRAINER II-XII intact, nl mental status, nl speech, other (weak on right hand grasping) Lymph: nl lymph nodes Results Results 24hrs Laboratory Tests Test 10/12/18 20:50 10/12/18 21:00 10/13/18 05:30 White Blood Count 10.0 # 7.3 # Red Blood Count 4.96 4.57 L Hemoglobin 16.8 15.5 Hematocrit 45.9 42.6 Mean Corpuscular Volume 92.5 93.2 Mean Corpuscular Hemoglobin 33.9 H 33.9 H Mean Corpuscular Hemoglobin Concent 36.6 36.4 Red Cell Distribution Width 12.0 12.3 Platelet Count 152 126 L Mean Platelet Volume 10.7 H 11.1 H Immature Granulocytes % 0.300 0.300 Neutrophils % 46.8 50.7 Lymphocytes % 44.8 37.7 Monocytes % 6.3 8.4 Eosinophils % 1.4 2.5 Basophils % 0.4 0.4 Nucleated Red Blood Cells % 0.0 0.0 Immature Granulocytes # 0.030 0.020 Neutrophils # 4.7 3.7 Lymphocytes # 4.5 H 2.8 Monocytes # 0.6 0.6 Eosinophils # 0.1 0.2 Basophils # 0.0 0.0 Nucleated Red Blood Cells # 0.0 0.0 Prothrombin Time 13.9 Prothrombin Time Ratio 1.1 INR International Normalized Ratio 1.06 Activated Partial Thromboplast Time 30.1 Sodium Level 146 H 142 Potassium Level 3.7 3.5 Chloride Level 109 106 Carbon Dioxide Level 25 25 Anion Gap 12 11 Blood Urea Nitrogen 10 13 Creatinine 0.95 0.69 Est Glomerular Filtrat Rate mL/min > 60 > 60 Glucose Level 145 155 Hemoglobin A1c 5.4 Calcium Level 9.0 8.5 Creatine Kinase 262 H Creatine Kinase Index 0.5 Creatinine Kinase MB (Mass) 1.20 Troponin I < 0.012 Triglycerides Level 465 H Cholesterol Level 206 H LDL Cholesterol, Calculated 66 HDL Cholesterol 47 Cholesterol/HDL Ratio 4.3 Ethyl Alcohol Level 226.0 H Urine Color YELLOW Urine Clarity CLEAR Urine pH 5.0 Urine Specific [place] 1.018 Urine Ketones TRACE A Urine Nitrite NEGATIVE Urine Bilirubin NEGATIVE Urine Urobilinogen 1+ H Urine Leukocyte Esterase NEGATIVE Urine Hemoglobin NEGATIVE Urine Glucose NEGATIVE Urine Total Protein NEGATIVE Urine Opiates Screen Negative Urine Barbiturates Negative Urine Amphetamines Screen Negative Urine Benzodiazepines Screen Negative Urine Cocaine Screen Negative Urine Cannabinoids Negative Magnesium Level 1.9 Total Bilirubin 0.3 Direct Bilirubin 0.00 Indirect Bilirubin 0.3 Aspartate Amino Transf (AST/SGOT) 33 Alanine Aminotransferase (ALT/SGPT) 47 Alkaline Phosphatase 89 Total Protein 7.3 Albumin 4.1 Globulin 3.20 Albumin/Globulin Ratio 1.28 Thyroid Stimulating Hormone (TSH) 2.770 Medications Medication Current Medications IV Flush (NS 3 ml) 3 ml PER PROTOCOL IV ; Start 10/12/18 at 22:30 Acetaminophen (Tylenol Tab) 650 mg Q6H PRN PO .PAIN 1-3 OR TEMP; Start 10/12/18 at 22:30 Docusate Sodium (Colace) 100 mg Q12H PRN PO .CONSTIPATION; Start 10/12/18 at 22:30 Bisacodyl (Dulcolax) 5 mg DAILY PRN PO .CONSTIPATION; Start 10/12/18 at 22:30 Fish Oil (Fish Oil) 1,000 mg BID PO Last administered on 10/13/18at 09:04; Admin Dose 1,000 MG; Start 10/12/18 at 22:30 Multivitamins 10 ml/Thiamine HCl 100 mg/Folic Acid 1 mg/Sodium Chloride 1,011.2 ml @ 125 mls/ hr DAILY@09 IVPB Last administered on 10/13/18at 09:04; Admin Dose 125 MLS/HR; Start 10/12/18 at 22:30; Stop 10/13/18 at 22:29 Lorazepam (Ativan) 1 mg Q2H PRN IV CONTROL WITHDRAWAL SYMPTOMS; Start 10/12/18 at 22:30 Thiamine HCl (Vitamin B1) 100 mg DAILY PO Last administered on 10/13/18at 09:04; Admin Dose 100 MG; Start 10/13/18 at 09:00 KANA GLASER MD Oct 13, 2018 13:39
--- NOTE | 2018-10-13 15:13 | CONS ---
Assessment/Plan Assessment/Plan Hospital Course 32 M s/ reported PMHx, who presents for evaluation of transient L hemiparesis...in the context of ETOH intoxication....as well as persistent right hand paresthesias.. The clinical picture is not classic for stroke...however, temporally dissociated and multifocal strokes are theoretically possible.. Seizure is unlikely.. Head CT is unremarkable UDS neg ETOH serum 226 P: Await MRI brain for further characterization Add CTA head and neck to exclude arterial dissection.. Daily asa for now, pending the above ETOH w/d and other management per primary Will follow clinically Consultation Date/Type/Reason Admit Date/Time Type of Consult Neurology Reason for Consultation transient L sided numbness/weakness Requesting Provider: KANA GLSAER MD Date/Time of Note DATE: 10/13/18 TIME: 15:05 Hx of Present Illness 32 yo M with no significant PMH who presented to the ED with complaints of transient L hemiparesis/hemisensory loss. History was obtained from pt and chart review. The pt endorsed that the L face/arm/leg numbness and weakness came on suddenly ~ 1900. He states that it started in his L arm before radiating up to his face and then his leg. He states that shortly (~1min) after, he became weak in his L face/arm/leg and noticed his speech was slurred. He said the sx lasted for a total of 5 min before spontaneously resolving. He then stated that when he got to the ED, he noticed that his R hand became tingly. He states that those sx have still persisted until today. He denies previous episodes in the past, denies drug use, though he states that he does drink alcohol on occasion (couple times per week). His serum EtOH was 226 on arrival. He currently endorses R hand paresthesias and denies all other neurologic sx currently. It is additionally elsewhere noted: Hx of Present Illness Chief complaint: Left-sided numbness paralysis This is a 32-year-old male who presented to the emergency department after having symptoms of left-sided numbness paralysis. Patient stated that around 7 PM yesterday he started feeling left arm numbness followed by a complete paralysis. He states that he also felt numbness of his left side of his face. He also reported slurred speech. He states it lasted for approximately 5 minutes will resolution of the symptoms. He does report that he was drinking yesterday as well. Because his mother had a stroke before he was concerned and came to the emergency department. In the emergency department the patient had a code stroke called on him and the telemetry neurologist did an examination and there was concern for possible TIA and so he was recommended admission for further workup. It was also noted that the patient's blood alcohol level was elevated to 226. Patient reports that he drinks a few days a week but denies ever blacking out. He drinks wine and beer. Patient does report that he also was later started feeling numbness in his right hand but no weakness. negative unless noted otherwise in HPI Exam/Review of Systems Exam Vitals Vital Signs Date Temp Pulse Resp B/P (MAP) Pulse Ox O2 O2 Flow FiO2 Time Delivery Rate 10/13/18 103 12:25 10/13/18 98.6 19 139/78 96 Room Air 11:03 (98) Intake and Output 10/12/18 10/12/18 10/13/18 1515:00 23:00 07:00 IntakeIntake Total 900 ml OutputOutput Total 600 ml BalanceBalance 300 ml Exam PE: Gen Appearance: No Apparent Distress HEENT: Normocephalic Cardiovascular: Regular rate Lungs: Clear bilaterally Abdomen: Soft Extremities: Dry NE: The patient was alert and oriented.. Language was normal. Fund of knowledge was normal. Pupils were equal and reactive to light. There was no afferent pupillary defect. Visual bruno were normal. Funduscopic examination was limited. Extra-ocular movements were full. Ptosis was absent. There was no nystagmus. Facial sensation was normal. Face was symmetric with normal strength. Hearing was intact. Palate movements were normal. Neck strength was normal. There was normal tongue bulk and speed of movement. Tone was normal. Muscle bulk was normal. I did not see fasciculations. His R hand was mildly weak; his other extremities were strong to confrontation. Vibration sensation was normal. Temperature and pinprick sensation was normal. Rapid alternating movements were normal. There was no dysmetria. There was no intention tremor. Gait was deferred due to bedrest. Arm and leg reflexes were 2+ and symmetric. Herrera's sign was absent. Plantar responses were flexor. Results Result Diagram: 10/13/1830 10/13/18 05 Results 24hrs Laboratory Tests Test 10/12/18 20:50 10/12/18 21:00 10/13/18 05:30 White Blood Count 10.0 # 7.3 # Red Blood Count 4.96 4.57 L Hemoglobin 16.8 15.5 Hematocrit 45.9 42.6 Mean Corpuscular Volume 92.5 93.2 Mean Corpuscular Hemoglobin 33.9 H 33.9 H Mean Corpuscular Hemoglobin Concent 36.6 36.4 Red Cell Distribution Width 12.0 12.3 Platelet Count 152 126 L Mean Platelet Volume 10.7 H 11.1 H Immature Granulocytes % 0.300 0.300 Neutrophils % 46.8 50.7 Lymphocytes % 44.8 37.7 Monocytes % 6.3 8.4 Eosinophils % 1.4 2.5 Basophils % 0.4 0.4 Nucleated Red Blood Cells % 0.0 0.0 Immature Granulocytes # 0.030 0.020 Neutrophils # 4.7 3.7 Lymphocytes # 4.5 H 2.8 Monocytes # 0.6 0.6 Eosinophils # 0.1 0.2 Basophils # 0.0 0.0 Nucleated Red Blood Cells # 0.0 0.0 Prothrombin Time 13.9 Prothrombin Time Ratio 1.1 INR International Normalized Ratio 1.06 Activated Partial Thromboplast Time 30.1 Sodium Level 146 H 142 Potassium Level 3.7 3.5 Chloride Level 109 106 Carbon Dioxide Level 25 25 Anion Gap 12 11 Blood Urea Nitrogen 10 13 Creatinine 0.95 0.69 Est Glomerular Filtrat Rate mL/min > 60 > 60 Glucose Level 145 155 Hemoglobin A1c 5.4 Calcium Level 9.0 8.5 Creatine Kinase 262 H Creatine Kinase Index 0.5 Creatinine Kinase MB (Mass) 1.20 Troponin I < 0.012 Triglycerides Level 465 H Cholesterol Level 206 H LDL Cholesterol, Calculated 66 HDL Cholesterol 47 Cholesterol/HDL Ratio 4.3 Ethyl Alcohol Level 226.0 H Urine Color YELLOW Urine Clarity CLEAR Urine pH 5.0 Urine Specific [place] 1.018 Urine Ketones TRACE A Urine Nitrite NEGATIVE Urine Bilirubin NEGATIVE Urine Urobilinogen 1+ H Urine Leukocyte Esterase NEGATIVE Urine Hemoglobin NEGATIVE Urine Glucose NEGATIVE Urine Total Protein NEGATIVE Urine Opiates Screen Negative Urine Barbiturates Negative Urine Amphetamines Screen Negative Urine Benzodiazepines Screen Negative Urine Cocaine Screen Negative Urine Cannabinoids Negative Magnesium Level 1.9 Total Bilirubin 0.3 Direct Bilirubin 0.00 Indirect Bilirubin 0.3 Aspartate Amino Transf (AST/SGOT) 33 Alanine Aminotransferase (ALT/SGPT) 47 Alkaline Phosphatase 89 Total Protein 7.3 Albumin 4.1 Globulin 3.20 Albumin/Globulin Ratio 1.28 Thyroid Stimulating Hormone (TSH) 2.770 Medications Medication Current Medications IV Flush (NS 3 ml) 3 ml PER PROTOCOL IV ; Start 10/12/18 at 22:30 Acetaminophen (Tylenol Tab) 650 mg Q6H PRN PO .PAIN 1-3 OR TEMP; Start 10/12/18 at 22:30 Docusate Sodium (Colace) 100 mg Q12H PRN PO .CONSTIPATION; Start 10/12/18 at 22:30 Bisacodyl (Dulcolax) 5 mg DAILY PRN PO .CONSTIPATION; Start 10/12/18 at 22:30 Fish Oil (Fish Oil) 1,000 mg BID PO Last administered on 10/13/18at 09:04; Admin Dose 1,000 MG; Start 10/12/18 at 22:30 Multivitamins 10 ml/Thiamine HCl 100 mg/Folic Acid 1 mg/Sodium Chloride 1,011.2 ml @ 125 mls/ hr DAILY@09 IVPB Last administered on 10/13/18at 09:04; Admin Dose 125 MLS/HR; Start 10/12/18 at 22:30; Stop 10/13/18 at 22:29 Lorazepam (Ativan) 1 mg Q2H PRN IV CONTROL WITHDRAWAL SYMPTOMS; Start 10/12/18 at 22:30 Thiamine HCl (Vitamin B1) 100 mg DAILY PO Last administered on 10/13/18at 09:04; Admin Dose 100 MG; Start 10/13/18 at 09:00 Past Medical History reviewed Home Meds Reported Medications [Multivitamins] No Conflict Check 10/12/18 Discontinued Reported Medications Metoprolol Succinate* (Toprol XL*) 25 Mg Tab.sr.24h, 25 MG PO DAILY, #30 TAB 07/13/18 Fluoxetine Hcl* (Fluoxetine Hcl*) 20 Mg Capsule, 20 MG PO DAILY, CAP 07/13/18 Aspirin* (Aspirin* EC) 81 Mg Tablet.dr, 81 MG PO DAILY, TAB 07/13/18 Discontinued Scripts Lorazepam* (Ativan*) 0.5 Mg Tablet, 0.5 MG PO Q8H PRN for ANXIETY, #10 TAB Prov:PHIL DIAZ 07/14/18 Medications Current Medications IV Flush (NS 3 ml) 3 ml PER PROTOCOL IV ; Start 10/12/18 at 22:30 Acetaminophen (Tylenol Tab) 650 mg Q6H PRN PO .PAIN 1-3 OR TEMP; Start 10/12/18 at 22:30 Docusate Sodium (Colace) 100 mg Q12H PRN PO .CONSTIPATION; Start 10/12/18 at 22:30 Bisacodyl (Dulcolax) 5 mg DAILY PRN PO .CONSTIPATION; Start 10/12/18 at 22:30 Fish Oil (Fish Oil) 1,000 mg BID PO Last administered on 10/13/18at 09:04; Admin Dose 1,000 MG; Start 10/12/18 at 22:30 Multivitamins 10 ml/Thiamine HCl 100 mg/Folic Acid 1 mg/Sodium Chloride 1,011.2 ml @ 125 mls/ hr DAILY@09 IVPB Last administered on 10/13/18at 09:04; Admin Dose 125 MLS/HR; Start 10/12/18 at 22:30; Stop 10/13/18 at 22:29 Lorazepam (Ativan) 1 mg Q2H PRN IV CONTROL WITHDRAWAL SYMPTOMS; Start 10/12/18 at 22:30 Thiamine HCl (Vitamin B1) 100 mg DAILY PO Last administered on 10/13/18at 09:04; Admin Dose 100 MG; Start 10/13/18 at 09:00 Allergies: Coded Allergies: No Known Allergy (Unverified , 10/12/18) Past Surgical History reviewed Social History reviewed Alcohol Use: heavy Smoking Status: Never smoker AMISH CHAIDEZ NP Oct 13, 2018 15:13 HOWARD CAMACHO Oct 13, 2018 15:37
[2018-10-13] MEDS ORDERED: SOD CHLORIDE 0.9% 100 ML ONE (16:23)
[2018-10-13] MEDS ORDERED: IOHEXOL 100 ML ONE (16:23)
[2018-10-13] MEDS: ASPIRIN (EC) 81 MG TAB PO SCH (16:28)
[2018-10-14] VITALS (9 sets, daily range): BP systolic 118–134; BP diastolic 65–81; PULSE 58–79; RESP 18–20
[2018-10-14] MEDS: FISH OIL 1,000 MG CAP PO SCH ×2 (08:40→20:08)
[2018-10-14] MEDS: THIAMINE 100 MG TAB PO SCH (08:41)
[2018-10-14] MEDS: ASPIRIN (EC) 81 MG TAB PO SCH (08:41)
--- NOTE | 2018-10-14 10:51 | PN ---
Date/Time of Note Date/Time of Note DATE: 10/14/18 TIME: 10:47 Assessment/Plan VTE Prophylaxis Risk score (from Ns)>0 risk: 1 SCD applied (from Ns): Yes Pharmacological prophylaxis: other Pharm contraindication: low risk/ambulating Lines/Catheters IV Catheter Type (from Nrsg): Saline Lock Urinary Cath still in place: No Assessment/Plan Assessment/Plan 1. Transient weakness on left side, numbness and weakness on right forearm and hand, numbness on left hand, abnormal cervical spinal MRI, neurosurgical consultation with Dr. Smith 2. Alcohol abuse, no withdrawal symptoms. Encourage cessation 3. Obesity: We will check a hemoglobin A1c, lipid panel, TSH, encourage diet and lifestyle modification. 4. DVT GI prophylaxis: SCDs, no GI prophylaxis indicated Result Diagram: 10/13/18 0530 10/13/18 0530 Subjective 24 Hr Interval Summary Free Text/Dictation less numbness and weakness on right forearm today, but he has numbness on left hand Exam/Review of Systems Exam Vitals Vital Signs Date Temp Pulse Resp B/P (MAP) Pulse Ox O2 O2 Flow FiO2 Time Delivery Rate 10/14/18 71 08:10 10/14/18 98.2 18 134/65 96 07:18 (88) 10/14/18 Room Air 04:33 Intake and Output 10/13/18 10/13/18 10/14/18 1515:00 23:00 07:00 IntakeIntake Total 1050 ml 450 ml OutputOutput Total 950 ml BalanceBalance 100 ml 450 ml Constitutional: alert, oriented, well developed Psych: no complaints, nl mood/affect Head: normocephalic, atraumatic Eyes: nl conjunctiva, EOMI, nl lids ENMT: nl external ears & nose, nl lips & teeth, nl nasal mucosa & septum Neck: supple, non-tender Respiratory: clear to auscultation, normal air movement; No congested cough, No crackles/rales, No diminished breath sounds, No intercostal retraction, No labored breathing, No respirations, No tactile fremitus, No wheezing, No other Cardiovascular: regular rate and rhythm, nl pulses; No bruits, No diastolic murmur, No edema, No gallop, No irregular rhythm, No jugular venous distention (JVD), No murmurs/extra sounds, No rub, No systolic murmur, No S3, No S4, No other Gastrointestinal: soft, nl liver, spleen, non-tender; No ascites, No bowel sounds, No distended, No firm, No hepatomegaly, No mass, No rebound or guarding, No splenomegaly, No surgical scars, No tender, No other Musculoskeletal: nl extremities to inspection Extremities: normal pulses; No calf tenderness, No cyanosis, No clubbing, No edema, No pitting pedal edema, No palpable cord, No tenderness, No other Neurological: TRENCH TRIMMER FINE II-XII intact, nl mental status, nl speech, nl strength Medications Medication Current Medications IV Flush (NS 3 ml) 3 ml PER PROTOCOL IV ; Start 10/12/18 at 22:30 Acetaminophen (Tylenol Tab) 650 mg Q6H PRN PO .PAIN 1-3 OR TEMP; Start 10/12/18 at 22:30 Docusate Sodium (Colace) 100 mg Q12H PRN PO .CONSTIPATION; Start 10/12/18 at 22:30 Bisacodyl (Dulcolax) 5 mg DAILY PRN PO .CONSTIPATION; Start 10/12/18 at 22:30 Fish Oil (Fish Oil) 1,000 mg BID PO Last administered on 10/14/18at 08:40; Admin Dose 1,000 MG; Start 10/12/18 at 22:30 Lorazepam (Ativan) 1 mg Q2H PRN IV CONTROL WITHDRAWAL SYMPTOMS; Start 10/12/18 at 22:30 Thiamine HCl (Vitamin B1) 100 mg DAILY PO Last administered on 10/14/18at 08:41; Admin Dose 100 MG; Start 10/13/18 at 09:00 Aspirin (Halfprin) 81 mg DAILY PO Last administered on 10/14/18at 08:41; Admin Dose 81 MG; Start 10/13/18 at 16:00 KANA GLASER MD Oct 14, 2018 10:51
--- NOTE | 2018-10-14 11:37 | CONS ---
Assessment/Plan Assessment/Plan Hospital Course 32 M s/ reported PMHx, who presents for evaluation of transient L face arm and leg weakness...in the context of ETOH intoxication....as well as persistent right hand paresthesias since admission.. MRI brain is reassuringly without acute intracranial pathology. CTA Head and neck is unremarkable.. MRI C suggests possible R C5-6 disc disease..which could theoretically contribute to hand paresthesias.. UDS neg ETOH serum 226 P: OK to defer additional neuroimaging for now ETOH w/d and other management per primary PT/OT as necessary Will sign off for now; please call w/ adnl ?s Consultation Date/Type/Reason Admit Date/Time Oct 12, 2018 at 22:21 Type of Consult Neurology Reason for Consultation transient L sided numbness/weakness Requesting Provider: KANA GLASER MD Date/Time of Note DATE: 10/14/18 TIME: 11:35 24 HR Interval Summary Free Text/Dictation Continues acute care. Pt denies any paresthesias, weakness, or other neurologic sx at this time. S/p MRI brain, CT C spine. Exam Vital Signs Vitals Vital Signs Date Temp Pulse Resp B/P (MAP) Pulse Ox O2 O2 Flow FiO2 Time Delivery Rate 10/14/18 71 08:10 10/14/18 98.2 18 134/65 96 07:18 (88) 10/14/18 Room Air 04:33 Intake and Output 10/13/18 10/13/18 10/14/18 1515:00 23:00 07:00 IntakeIntake Total 1050 ml 450 ml OutputOutput Total 950 ml BalanceBalance 100 ml 450 ml Exam PE: Gen Appearance: No Apparent Distress HEENT: Normocephalic Cardiovascular: Regular rate Lungs: Clear bilaterally Abdomen: Soft Extremities: Dry NE: The patient was alert and oriented.. Language was normal. Fund of knowledge was normal. Pupils were equal and reactive to light. There was no afferent pupillary defect. Visual bruno were normal. Funduscopic examination was limited. Extra-ocular movements were full. Ptosis was absent. There was no nystagmus. Facial sensation was normal. Face was symmetric with normal strength. Hearing was intact. Palate movements were normal. Neck strength was normal. There was normal tongue bulk and speed of movement. Tone was normal. Muscle bulk was normal. I did not see fasciculations. His arms and legs were strong to confrontation. Vibration sensation was normal. Temperature and pinprick sensation was normal. Rapid alternating movements were normal. There was no dysmetria. There was no intention tremor. Gait was deferred due to bedrest. Arm and leg reflexes were 2+ and symmetric. Herrera's sign was absent. Plantar responses were flexor. AMISH CHAIDEZ NP Oct 14, 2018 11:37 HOWARD CAMACHO Oct 14, 2018 20:14
[2018-10-15 02:20] VITALS: BP 120/66; PULSE 66; RESP 18
[2018-10-15 08:25] VITALS: BP 129/68; PULSE 80; RESP 18
[2018-10-15] MEDS: ASPIRIN (EC) 81 MG TAB PO SCH (09:30)
[2018-10-15] MEDS: FISH OIL 1,000 MG CAP PO SCH (09:30)
[2018-10-15] MEDS: THIAMINE 100 MG TAB PO SCH (09:30)
--- NOTE | 2018-10-15 14:15 | CONS ---
Assessment/Plan Assessment/Plan Assessment/Plan (Daily) Date of consultation: 10/15/2089 Requesting physician:Dr. Renay Adair Consulting service: Neurosurgery This is a 32-year-old right-handed male who was admitted to the hospital after he presented with acute onset "left upper extremity numbness and paralysis." However the patient himself tells me that his symptoms are slightly different than what is documented in the other medical records. He tells me that he has had approximately 2 weeks of right greater than left upper extremity numbness and paresthesias that occur on an intermittent basis. The numbness is mainly located at the patient's wrists in the palm of his hands and involving all his fingers but more significantly the index, the middle and the little fingers. There is also some pain that radiates from just below his elbow down to his wrists and palms. However, he does not have any pain or numbness that travels from the proximal upper extremity or the neck area down his upper extremities. He has minimal to no neck pain. The patient's hand symptomatology is more severe at night and has been waking him up due to discomfort. The patient denies any weakness of his upper or lower extremities. He has not had the set of symptoms occur prior to 2 weeks ago. The patient has radial been evaluated by neurology for possible stroke that has been ruled out. Neurosurgery has been consulted for evaluation of imaging studies that were done for his cervical spi ne. The patient denies loss of consciousness, convulsions or seizures. He denies any decreased dexterity and denies imbalance or gait ataxia. He has not been evaluated by a neurologist on an outpatient basis for the above complaints previously. He has not had any electrodiagnostic studies of his upper extremities done previously. Past medical history: Vitiligo, tonsillectomy Allergies:No known drug allergies Review of systems: Denies chest pain, shortness of breath, heartburn. Please see above for pertinent positives and negatives. Family history: History of stroke and family Social history: Tobacco: None EtOH: Heavy alcohol consumption several times a week illicit or recreational drugs: Denies Physical examination: This is a young male sitting up in bed in his room. He is in no apparent distress. He is pleasant. Patient is awake alert and oriented 4. Language is fluent. Face is symmetric. Extraocular movements are grossly normal. Pupils are equally round and reactive to light bilaterally. Tongue is midline. Facial sensation to light touch is grossly intact. Shoulder shrugs are symmetric. Muscle bulk and tone is normal bilateral upper and lower extremities. Deep tendon reflexes are 1+ bilateral upper and lower extremities. Sensation to light touch is grossly normal bilateral upper and lower extremities. Motor strength is 5 out of 5 bilateral upper and lower extremities. There is no Joya sign present bilaterally. There is no dysdiadochokinesia bilaterally. There is no dysmetria bilaterally. Toes are downgoing bilaterally. There is no pronator drift. Phalen's maneuver on the left does cause some hand numbness and finger numbness mainly involving the left index, middle and ring fingers. However the patient is not able to more specifically pinpoint whether the numbness of his ring finger is more on the ulnar side over the radial side. Percussion at the carpal tunnel or the ulnar groove or the against canal does not produce a Tinel's sign bilaterally. Gait testing has been deferred per patient request. CERVICAL SPINE: Examination of the cervical spine reveals no significant tenderness throughout the posterior cervical, trapezius or shoulder regions. Spurling's maneuver does not cause radiating pain or numbness down his upper extremities bilaterally. CERVICAL SPINE ACTIVE RANGE OF MOTION: Patient ROM Normal ROM Cervical flexion: 40 50 Cervical extension: 50 60 Cervical lateral rotation to the left: 70 80 Cervical lateral rotation to the right: 70 80 THORACIC SPINE: Examination of the thoracic spine reveals no significant tenderness. Imaging: Brain MRI without contrast: There is no evidence of an acute infarct, intracranial mass lesion, hematoma, hydrocephalus or midline shift. CT angiogram head: There is no gross evidence of intracranial stenosis or an aneurysm noted. MRI cervical spine without contrast: There is reversal of the normal cervical lordosis at the mid cervical area. There is no gross evidence of fracture or subluxation noted. There is a focal right C5-C6 disc herniation putting some pressure on the exiting right C6 nerve root. There is no evidence of cord compression or signal changes within the spinal cord. Assessment/plan: I have reviewed the above images with the patient in detail. Although the patient does seem to have a right C5-6 proximal foraminal disc herniation putting pressure on the exiting right C6 nerve, his symptomatology does not appear to be radicular in nature and is in fact bilateral, with the right being more severe than the left. The patient also does not appear to have imaging evidence of an acute infarct. Some of his symptoms and clinical examination suggests possible atypical carpal tunnel syndrome especially in the fact that the symptoms wake the patient up at night and he does seem to have at least some numbness of his fingers on the left that are brought on with a Phalen's maneuver. There is no acute neurosurgical intervention indicated at this time. The patient's symptoms seem to have improved somewhat with the start of pain medications. He can benefit from empiric treatment with gabapentin/Neurontin to start at 300 mg at bedtime that may be progressively increased to 3 times a day if the patient tolerates the medication. The patient can follow-up with neurology on an outpatient basis and further workup evaluation including electrodiagnostic studies (EMG, nerve conduction velocity) of his upper extremities would be warranted. The patient can follow-up with neurosurgery when necessary. SHERWIN MARTINEZ MD Oct 15, 2018 14:15
[2018-10-15 15:25] VITALS: BP 122/64; PULSE 72; RESP 18
[2018-10-15] MEDS ORDERED: OMEG1CAP2 PO (15:46)
--- NOTE | 2018-10-15 15:49 | PDOCDIS ---
Discharge Instructions CONDITION [id number] Patient Condition: [id number] Stable HOME CARE INSTRUCTIONS: [id number] Diet Instructions: [id number] Low Fat /Cholesterol FOLLOW UP/APPOINTMENTS Follow-up Plan Follow-up with your primary care physician in 2 weeks. OTHER ORDERS: Other Orders: 1. Follow a low-cholesterol diet. 2. Start taking fish oil twice daily for your high cholesterol. 3. Resume activities as tolerated. 4. Follow-up with your primary care physician in 2 weeks. 5. Please go to the nearest emergency room if you have any sudden onset of speech disturbances, focal weakness, chest pain, or any other unusual signs/symptoms. ALEXANDR RAYO NP Oct 15, 2018 15:49
--- NOTE | 2018-10-15 15:55 | DS ---
Date/Time of Note Date/Time of Note DATE: 10/15/18 TIME: 15:53 Discharge Summary Admission/Discharge Info Admit Date/Time Oct 14, 2018 at 10:51 Discharge Date/Time Discharge Diagnosis 1. Transient left upper extremity numbness and paralysis in the setting of a lcohol intoxication. 2. Alcohol intoxication. 3. Suspected cirrhotic changes of the liver with mild upper abdominal varices and borderline splenomegaly. 4. Dyslipidemia. 5. Right C5-6 proximal foraminal disc herniation 6. Obesity. BMI 36.5 kg/m. Patient Condition: Stable Consults 1. Gladys Cleveland MD, Neurology. 2. Alberto Smith MD, Neurosurgery. Procedures Brain MRI IMPRESSION: No evidence of acute ischemia. Unremarkable noncontrast MRI of the brain. Cervical Spine MRI IMPRESSION: 1. Concern for a right foraminal annular tear and protrusion at C5-6 causing mild extrinsic effect upon the emanating nerve root without central canal or foraminal stenosis 2. Mild disc bulging at C3-4 without stenosis. 3. Small central protrusion at C4-5 without evidence for stenosis. 4. Reversal of the normal cervical lordosis may reflect muscle spasm. Abdominal MRI IMPRESSION: There are suspected cirrhotic changes of the liver are present with mild upper abdominal varices and borderline splenomegaly. There is no evidence of hepatic mass. No evidence of bowel obstruction or inflammation. Hx of Present Illness This is a 32-year-old male with past medical history of vitiligo and obesity who came to the emergency room after having symptoms of left-sided numbness and paralysis with reported slurred speech that lasted approximately 5 minutes with resolution of the symptoms. In the emergency room, code stroke was activated. The patient was evaluated by the telemetry neurologist and recommended no TPA. Hospital Course The patient was admitted to inpatient setting. A neurology consult was obtained. The patient was started on aspirin. The patient underwent a head CT that was showing no stenosis or dissection of major extracranial arteries with no major intracranial arterial occlusion or stenosis. The patient underwent a brain MRI that was negative for any evidence of acute ischemia. The patient's cervical spine MRI was showing concern for a right foraminal annular tear and protrusion at C5-C6 causing mild extrinsic effect upon the emanating nerve root without central canal foraminal stenosis. Once the patient's MRI ruled out any stroke, the patient was taken off aspirin. It is highly likely that the patient's symptomatology could have been precipitated by the patient's underlying alcohol intoxication. The patient was evaluated by neurosurgery for his underlying questionable annular tear and protrusion at C5-C6. Neurosurgery recommended no surgical intervention and the patient's presenting symptoms are not related to this. The patient was maintained on thiamine supplements. The patient was maintained on PRN Ativan for any alcohol withdrawal delirium. The patient's lipid panel was noticed to be significant with elevated total cholesterol and elevated triglycerides. Therefore, the patient was started on fish oil for his underlying hypertriglyceridemia. The patient was advised on therapeutic lifestyle changes including following a low cholesterol diet. The patient had a stable hospital course. The patient is stable to be discharged home. Discharge Instructions 1. Follow a low-cholesterol diet. 2. Start taking fish oil twice daily for your high cholesterol. 3. Resume activities as tolerated. 4. Follow-up with your primary care physician in 2 weeks. 5. Please go to the nearest emergency room if you have any sudden onset of speech disturbances, focal weakness, chest pain, or any other unusual signs/symptoms. The patient verbalized understanding of his discharge instructions. At this time I would like to thank all the consultants for seeing the patient and providing clinical recommendations. The patient was seen in collaboration with Dr. Jean. Home Meds Reported Medications [Multivitamins] No Conflict Check 10/12/18 Discontinued Reported Medications Metoprolol Succinate* (Toprol XL*) 25 Mg Tab.sr.24h, 25 MG PO DAILY, #30 TAB 07/13/18 Fluoxetine Hcl* (Fluoxetine Hcl*) 20 Mg Capsule, 20 MG PO DAILY, CAP 07/13/18 Aspirin* (Aspirin* EC) 81 Mg Tablet.dr, 81 MG PO DAILY, TAB 07/13/18 Discontinued Scripts Lorazepam* (Ativan*) 0.5 Mg Tablet, 0.5 MG PO Q8H PRN for ANXIETY, #10 TAB Prov:PHIL DIAZ 07/14/18 Follow-up Plan Follow-up with your primary care physician in 2 weeks. Primary Care Provider [facility] Time spent on discharge: > 30 minutes ALEXANDR RAYO NP Oct 15, 2018 15:55
[2018-10-16] MEDS ORDERED: Work Note ×2 (09:56→09:58)
== END 2018-10-15 18:50 | disposition home or self-care (01) | DRG 93 ==
LOC: E/R 20:20 → 6WM 22:21 → OBSVTOIN 10-14 10:51 → MS1 10-14 15:45
PROVIDERS: ADMIT Family Medicine; ATTEND Internal Medicine
DX: G83.9 Paralytic syndrome, unspecified (principal); R20.0 Anesthesia of skin; F10.129 Alcohol abuse with intoxication, unspecified; Y90.7 Blood alcohol level of 200-239 mg/100 ml; E66.9 Obesity, unspecified; Z68.36 Body mass index [BMI] 36.0-36.9, adult; M50.222 Other cervical disc displacement at C5-C6 level; E78.5 Hyperlipidemia, unspecified
CPT/HCPCS: 36415; 70450; 70496; 70498; 70551; 71045; 72141; 74183; 80048; 80053; 80061; 80307; 81003; 82550; 82553; 83036; 83735; 84443; 84484; 85025; 85610; 85730; 93005; 97161; 97166; G0378; J1885; J3411; J7030; J7040; Q9967

== ENCOUNTER 2018-11-05 13:40 | Emergency (ER) | payer MEDICAID ==
[~2018-11-05] VITALS: Ht 160 cm; Wt 75.0 kg
[~2018-11-05 13:40] MED LIST changes: -ASPI-817 PO; -FLUO20CA22 PO; -LORA-441 PO; -METO-335 PO; +MULTIVITAMINS; +OMEG1CAP2 PO; +Work Note
[2018-11-05 13:41] VITALS: Ht 160 cm; Wt 75.0 kg
[2018-11-05] MEDS ORDERED: IBUPROFEN 600 MG TAB PO ONE (16:00)
--- NOTE | 2018-11-05 16:01 | ERD ---
ER Documentation Chief Complaint Chief Complaint Right hand and leg numbness with headache x 2 weeks. Neuro intact ambulator HPI This is a 33-year-old male patient who presents to emergency room with complaint of pain to right hand and upper extremity starting 3 days ago. Denies trauma. States he wakes up with his hands hurting, numbness and tingling in right hand has to shake his hands to get sensation back, weakness with right hand. 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 Left ear pain, patient went to his PMD 2 days ago and was prescribed an eardrop for an external otitis media. ROS All systems reviewed and are negative except as per history of present illness. Medications Home Meds Active Scripts Naproxen* (Naprosyn*) 500 Mg Tablet, 500 MG PO BID PRN for PAIN AND/OR INFLAMMATION, #30 TAB Prov:REINA ESTRADA CLINICAL ESTHETICIAN 11/05/18 [Work Note] No Conflict Check This is to certify that the patient was admitted to [facility] from 10/12/2018 to 10/15/2018. He may return back to work on 10/22/2018 with no restrictions. Prov:ALEXANDR RAYO NP 10/16/18 [place]-3 Acid Ethyl Esters (Lovaza) 1 Gm Capsule, 2 GM PO BID, #120 CAP 2g (2 capsules) BID. Prov:ALEXANDR RAYO CLINICAL ESTHETICIAN 10/15/18 Reported Medications [Multivitamins] No Conflict Check 10/12/18 Allergies Allergies: Coded Allergies: No Known Allergy (Unverified , 10/12/18) PMhx/Soc History of Surgery: Yes (tonsillectomy) Anesthesia Reaction: No Hx Neurological Disorder: No Hx Respiratory Disorders: No Hx Cardiac Disorders: Yes (HTN) Hx Psychiatric Problems: No Hx Miscellaneous Medical Probl: No Hx Alcohol Use: Yes (SOCIAL DRINKER) Hx Substance Use: No Hx Tobacco Use: Yes Smoking Status: Former smoker FmHx Family History: No diabetes, No coronary disease, No other Physical Exam Vitals Vital Signs Date Temp Pulse Resp B/P (MAP) Pulse Ox O2 O2 Flow FiO2 Time Delivery Rate 11/05/18 98.7 92 16 144/78 98 Room Air 17:44 (100) 11/05/18 98.1 111 18 148/77 94 13:41 (100) Physical Exam Const: No acute distress Head: Atraumatic Eyes: Normal Conjunctiva, PERRL ENT: Right TM obscured by cerumen, Left TM clear, Left canal with light yellow slough Neck: Full range of motion. No meningismus. No lymphadenopathy Resp: Clear to auscultation bilaterally, no rales rhonchi wheezing Cardio: Regular rate and rhythm, no murmurs Abd: Soft, non tender, non distended. Normal bowel sounds Skin: No petechiae or rashe, +vitiligo Back: No midline or flank tenderness, no stepoff Ext: No cyanosis, or edema; RUE: strength 3/5, RUE blanches with dependent rubor, +tinels, +phalen, hypersensitivity to touch Neur: Awake and alert, steady gait, normal [id number], no pronator drift, equal smile, CNII-XII intact Psych: Normal Mood and Affect, anxious Results 24 hrs Current Medications Medications Dose Sig/Prem Start Time Status Last (Trade) Ordered Route PRN Stop Time Admin Dose Reason Admin Ibuprofen 600 mg ONCE ONCE 11/05/18 DC 11/05/18 (Motrin) PO 16:00 15:42 11/05/18 16:01 Procedures/MDM Pt signed out to [facility]. US result IMPRESSION: No sonographic evidence for venous thrombosis. Departure Diagnosis: Primary Impression: Carpal tunnel syndrome Additional Impression: Arm pain, right Condition: Stable Patient Instructions: What Is Carpal Tunnel Syndrome (CTS)? [facility] Additional Instructions: Thank you very much for allowing us to participate in your care. Your health and safety is our top priority at [facility]. Call your primary care doctor TOMORROW for an appointment during the next 2-4 days and bring all the information and medications prescribed. Have prescriptions filled and follow precisely the directions on the label. If the symptoms get worse and your provider is unavailable, return to the Emergency Department immediately. You must follow-up with primary care provider for further evaluation of right arm symptoms. You most likely have the beginning stages of carpal tunnel syndrome which require more specialized diagnostics. Try to avoid repetitive activity and activity that increases pain. Use Naprosyn twice daily for discomfort. REINA ESTRADA NP November 05, 2018 16:01
[2018-11-05] MEDS ORDERED: NAPR-985 PO (16:13)
[2018-11-05 17:44] VITALS: BP 144/78; PULSE 92; RESP 16
== END 2018-11-05 17:45 | disposition home or self-care (01) ==
LOC: FTE 13:40
DX: G56.01 Carpal tunnel syndrome, right upper limb (principal); M79.601 Pain in right arm; I10 Essential (primary) hypertension; Z87.891 Personal history of nicotine dependence
CPT/HCPCS: 93922; Z7610; 99282

== ENCOUNTER 2019-01-05 19:47 | Emergency (ER) | payer MEDICAID ==
[~2019-01-05] VITALS: Ht 160 cm; Wt 96.0 kg
[~2019-01-05 19:47] MED LIST changes: +NAPR-985 PO
[2019-01-05 19:57] VITALS: Ht 160 cm; Wt 96.0 kg
[2019-01-05] MEDS ORDERED: SOD CHLORIDE 0.9% 1,000 ML IV STA (20:30)
[2019-01-05] MEDS ORDERED: IBUP-1542 PO (22:19)
--- NOTE | 2019-01-05 22:23 | ERD ---
ER Documentation Chief Complaint Chief Complaint CP x 1 week and bilateral arm pain HPI Patient is a 33-year-old male with no medical problems who presents with chest pain shortness of breath. He has had the symptoms for the past 1 week. The pain comes and goes. He has bilateral arm pain. He has had this in the past. He tried Tylenol for pain. Upon review of old medical record the patient has multiple visits to the ER for various complaints. Review of the emergency department information exchange system shows visits to 2 separate emergency departments for a total of 9 visits over the past 1 year. He goes to a local [facility] for his care. ROS All systems reviewed and are negative except as per history of present illness. Medications Home Meds Active Scripts Metformin* (Glucophage*) 500 Mg Tab, 500 MG PO BID, #60 TAB Prov:JOSHUA SANTOS MD 01/05/19 Ibuprofen* (Motrin*) 600 Mg Tab, 600 MG PO Q6H PRN for PAIN AND OR ELEVATED TEMP, #30 TAB Prov:JOSHUA SANTOS MD 01/05/19 Naproxen* (Naprosyn*) 500 Mg Tablet, 500 MG PO BID PRN for PAIN AND/OR INFLAMMATION, #30 TAB Prov:REINA ESTRADA NP 11/05/18 [Work Note] No Conflict Check This is to certify that the patient was admitted to [facility] from 10/12/2018 to 10/15/2018. He may return back to work on 10/22/2018 with no restrictions. Prov:ALEXANDR RAYO NP 10/16/18 [place]-3 Acid Ethyl Esters (Lovaza) 1 Gm Capsule, 2 GM PO BID, #120 CAP 2g (2 capsules) BID. Prov:ALEXANDR RAYO NP 10/15/18 Reported Medications [Multivitamins] No Conflict Check 10/12/18 Allergies Allergies: Coded Allergies: No Known Allergy (Unverified , 10/12/18) PMhx/Soc History of Surgery: Yes (tonsillectomy) Anesthesia Reaction: No Hx Neurological Disorder: No Hx Respiratory Disorders: No Hx Cardiac Disorders: Yes (HTN) Hx Psychiatric Problems: No Hx Miscellaneous Medical Probl: No Hx Alcohol Use: Yes (SOCIAL DRINKER) Hx Substance Use: No Hx Tobacco Use: Yes Smoking Status: Former smoker FmHx Family History: No coronary disease Physical Exam Vitals Vital Signs Date Temp Pulse Resp B/P (MAP) Pulse Ox O2 O2 Flow FiO2 Time Delivery Rate 01/05/19 95 16 138/72 98 Room Air 22:31 (94) 01/05/19 Nasal 2 20:41 Cannula 01/05/19 98.6 114 16 138/73 93 19:57 (94) Physical Exam Const: No acute distress Head: Atraumatic Eyes: Normal Conjunctiva ENT: Normal External Ears, Nose and Mouth. Neck: Full range of motion. No meningismus. Resp: Clear to auscultation bilaterally Cardio: Regular rate and rhythm, no murmurs Abd: Soft, non tender, non distended. Normal bowel sounds Skin: No petechiae or rashes Back: No midline or flank tenderness Ext: No cyanosis, or edema Neur: Awake and alert Psych: Normal Mood and Affect Result Diagram: 01/05/19202901/05/192029 Results 24 hrs Laboratory Tests Test 01/05/19 20:30 White Blood Count 7.4 10^3/ul Red Blood Count 4.57 10^6/ul Hemoglobin 15.9 g/dl Hematocrit 42.7 % Mean Corpuscular Volume 93.4 fl Mean Corpuscular Hemoglobin 34.8 pg Mean Corpuscular Hemoglobin Concent 37.2 g/dl Red Cell Distribution Width 12.2 % Platelet Count 144 10^3/UL Mean Platelet Volume 10.9 fl Immature Granulocytes % 0.800 % Neutrophils % 41.5 % Lymphocytes % 47.0 % Monocytes % 8.2 % Eosinophils % 2.0 % Basophils % 0.5 % Nucleated Red Blood Cells % 0.0 /100WBC Immature Granulocytes # 0.060 10^3/ul Neutrophils # 3.1 10^3/ul Lymphocytes # 3.5 10^3/ul Monocytes # 0.6 10^3/ul Eosinophils # 0.2 10^3/ul Basophils # 0.0 10^3/ul Nucleated Red Blood Cells # 0.0 10^3/ul D-Dimer 389.86 ng/ml D-Dimer Comment Sodium Level 140 mmol/L Potassium Level 3.9 mmol/L Chloride Level 107 mmol/L Carbon Dioxide Level 21 mmol/L Anion Gap 12 Blood Urea Nitrogen 10 mg/dl Creatinine 0.71 mg/dl Est Glomerular Filtrat Rate mL/min > 60 mL/min Glucose Level 334 mg/dl Calcium Level 8.6 mg/dl Troponin I < 0.012 ng/ml Current Medications Medications Dose Sig/Prem Start Time Status Last (Trade) Ordered Route PRN Stop Time Admin Dose Reason Admin Sodium 1,000 ml @ Q1H STAT 01/05/19 DC 01/05/19 Chloride 1,000 mls/hr IV 20:30 20:38 01/05/19 21:29 Procedures/MDM EKG #1 read by me: Rate/Rhythm: Sinus tachycardia rate of 109 Intervals: Normal Impression: Sinus tachycardia without ischemia EKG #2 read by me: Rate/Rhythm: Sinus tachycardia rate of 102 Intervals: Normal Impression: Sinus tachycardia without ischemia Chest x-ray read by radiology. Patient is a 33-year-old male presents with chest pain shortness of breath. Troponin was negative. To EKG shows sinus tachycardia with an S1, Q3, T3 pattern. For this reason a d-dimer was done as I do believe he is still low risk for pulmonary embolism. D-dimer was negative and I doubt pulmonary embolism at this time. Chest x-ray was negative. I doubt acute coronary syndrome, pneumonia, pneumothorax, or aortic dissection. The patient was found to have incidental hyperglycemia and I do believe the patient has acute diabetes. The patient will be treated with metformin as an outpatient. I believe outpatient management is appropriate but the patient will need close follow-up with his primary doctor within 24 to 48 hours. He can return sooner for any worsening symptoms. Departure Diagnosis: Primary Impression: Chest pain Chest pain type: unspecified Qualified Codes: R07.9 - Chest pain, unspecified Condition: Fair Patient Instructions: Chest Pain, Uncertain Cause Referrals: [facility] (PCP) Additional Instructions: Call your primary care doctor TOMORROW for an appointment during the next 1-2 days.See the doctor sooner or return here if your condition worsens before your appointment time. JOSHUA SANTOS MD Jan 05, 2019 22:23
[2019-01-05] MEDS ORDERED: METF-849 PO (22:24)
[2019-01-05 22:31] VITALS: BP 138/72; PULSE 95; RESP 16
== END 2019-01-05 22:32 | disposition home or self-care (01) ==
LOC: E/R 19:47
DX: R07.9 Chest pain, unspecified (principal); I10 Essential (primary) hypertension; Z79.84 Long term (current) use of oral hypoglycemic drugs; Z87.891 Personal history of nicotine dependence
CPT/HCPCS: 36415; 71045; 80048; 84484; 85025; 85378; 93005; J7030; Z7502; Z7610

== ENCOUNTER 2019-02-18 14:59 | Emergency (ER) | payer MEDICAID, OTHER ==
[~2019-02-18] VITALS: Ht 160 cm; Wt 95.6 kg
[~2019-02-18 14:59] MED LIST changes: +IBUP-1542 PO; +METF-849 PO
[2019-02-18 15:22] VITALS: Ht 160 cm; Wt 95.6 kg
[2019-02-18 16:46] VITALS: BP 134/73; PULSE 75; RESP 20
== END 2019-02-18 17:35 | disposition home or self-care (01) ==
LOC: E/R 14:59
DX: I10 Essential (primary) hypertension (principal); E11.9 Type 2 diabetes mellitus without complications; Z87.891 Personal history of nicotine dependence; Z79.84 Long term (current) use of oral hypoglycemic drugs
CPT/HCPCS: 80048; 81003; 82962; 85025; 93005; Z7502